=== PATIENT | female | born 1990 | race Caucasian/White ===

== ENCOUNTER → 2017-05-21 08:43 | Outpatient (CLI) | payer BC, SELFPAY ==
[2017-05-26 10:42] LABS: HPV Reflexed? NOT INDICATED
== END ==
PROVIDERS: Family Provider Pediatrics; PCP Pediatrics; Visit Provider Obstetrics & Gynecology
DX: Z12.4 Encounter for screening for malignant neoplasm of cervix (principal)
CPT/HCPCS: 88175; G0145

== ENCOUNTER → 2019-01-12 08:15 | Outpatient (CLI) | payer OTHER, SELFPAY ==
[2019-01-12 12:46] LABS: Cholesterol 201 mg/dL (200); Glucose 77 mg/dL (74-106); High Density Lipoprotein 67 mg/dL; Triglycerides 111 mg/dL; Very Low Density Lipoprotein 22 mg/dL (5-40)
== END ==
PROVIDERS: Family Provider Family Medicine; PCP Family Medicine; Referring Provider Family Medicine; Visit Provider Family Medicine
DX: Z00.00 Encounter for general adult medical examination without abnormal findings (principal)
CPT/HCPCS: 36415; 80061; 82947

== ENCOUNTER → 2019-12-28 08:10 | Outpatient (CLI) | payer OTHER, SELFPAY ==
[2019-12-28 10:12] LABS: Cholesterol 198 mg/dL (200); Glucose 79 mg/dL (74-106); High Density Lipoprotein 64 mg/dL; Thyroid Stim Hormone (TSH) 1.64 uIU/mL (0.358-3.74); Triglycerides 106 mg/dL; Very Low Density Lipoprotein 21 mg/dL (5-40)
== END ==
PROVIDERS: PCP Family Medicine; Referring Provider Family Medicine; Visit Provider Nurse Practitioner Family
DX: Z00.00 Encounter for general adult medical examination without abnormal findings (principal); R53.83 Other fatigue
CPT/HCPCS: 36415; 80061; 82947; 84443

== ENCOUNTER → 2020-06-05 12:02 | Outpatient (CLI) | payer OTHER, SELFPAY ==
--- NOTE | 2020-06-05 12:06 | RAD_ITS ---
STUDY: X-RAY - CERVICAL SPINE REASON FOR EXAM: Female, 29 years old. NECK PAIN X 10 DAYS TECHNIQUE: 5 view(s) of the cervical spine were obtained including oblique views. COMPARISON: None FINDINGS: Normal anterior atlantoaxial articulation. Normal odontoid process. There is straightening of the normal cervical lordosis. Normal vertebral bodies and endplates. Normal disc space heights. Normal visualized intervertebral neuroforamina. The soft tissue structures are unremarkable. RAD/Cerv Spine 4 or 5 Views IMPRESSION: Straightening of the normal cervical lordosis. Electronically Signed: Erick Moore MD at 17:02 EST , Service support ,
== END ==
PROVIDERS: PCP Family Medicine; Referring Provider Family Medicine; Visit Provider Family Medicine
DX: M54.2 Cervicalgia (principal)
CPT/HCPCS: 72050

== ENCOUNTER → 2020-06-06 16:43 | Outpatient (CLI) | payer OTHER, SELFPAY ==
[2020-06-06 14:18] VITALS: BMI 33.6
[2020-06-09 16:42] LABS: HPV Reflexed? NOT INDICATED
== END ==
PROVIDERS: PCP Family Medicine; Referring Provider Nurse Practitioner Women's Health; Visit Provider Nurse Practitioner Women's Health
DX: Z12.4 Encounter for screening for malignant neoplasm of cervix (principal)
CPT/HCPCS: 88175; G0145

== ENCOUNTER → 2020-06-22 07:01 | Outpatient (CLI) | payer OTHER, SELFPAY ==
[2020-06-06 14:18] VITALS: BMI 33.6
[2020-06-22 08:28] LABS: Prolactin 16.8 ng/mL; Thyroid Stim Hormone (TSH) 2.72 uIU/mL (0.358-3.74)
[2020-06-26 10:46] LABS: Testosterone Free 1.5 pg/mL (0.0-4.2)
== END ==
PROVIDERS: PCP Family Medicine; Referring Provider Nurse Practitioner Women's Health; Visit Provider Nurse Practitioner Women's Health
DX: Z13.29 Encounter for screening for other suspected endocrine disorder (principal); N94.6 Dysmenorrhea, unspecified
CPT/HCPCS: 36415; 82627; 84146; 84402; 84443; 82626

== ENCOUNTER 2021-11-28 16:00 | Outpatient (RCR) | payer SELFPAY ==
--- NOTE | 2022-03-07 07:03 | HP.PT.NRP ---
JOCELYN COELLO was seen in my office for initial evaluation on 11/21/21. The following Plan of Care was established for this patient: Initial Frequency: 1x/Week Initial Duration: 6 Weeks Manual Therapy Techniques to Include: Functional dry needling This patient was last seen in our office . Pertinent comments regarding their Physical therapy will appear below: Self pay DN-d/c At this point I will be discontinuing this patient from physical therapy. I would be happy to see this patient again in the future if found appropriate by the physician. Thank you! Jumnaa Colmenares, EMILIET
== END 2021-11-28 19:00 | disposition home or self-care (01) ==
LOC: PT 16:00
PROVIDERS: PCP Family Medicine
DX: R69 Illness, unspecified (principal)

== ENCOUNTER → 2022-08-23 | Outpatient (CLI) | payer OTHER, SELFPAY | END | disposition home or self-care (01) | PROVIDERS: PCP Family Medicine; Visit Provider Advanced Practice Midwife | DX: Z11.3 Encounter for screening for infections with a predominantly sexual mode of transmission (principal) | CPT/HCPCS: 87070; 87205 ==

== ENCOUNTER → 2022-08-30 | Outpatient (CLI) | payer OTHER, SELFPAY ==
--- NOTE | 2022-08-30 14:48 | US_ITS ---
STUDY: ULTRASOUND TRANSVAGINAL CLINICAL: Female, 31 years old. 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 FINDINGS: Normal uterine size measuring 7.4 x 4.4 x 3.8 cm in maximal craniocaudal dimension. Myometrium is slightly heterogeneous however there is no definitive evidence for focal fibroid. Normal endometrial thickness measuring 6 mm. There are no endometrial masses, and there is no fluid in the endometrial cavity. Normal uterine cervix. Normal right ovary, measuring 2.8 x 2.4 x 2.1 cm. There are multiple follicles without a dominant cyst. Normal left ovary, measuring 3.2 x 2.5 x 1.7 cm. There is a small left paraovarian cyst measuring 2.5 x 2.4 x 2.1 cm. There is no free fluid in the pelvis. US/Transvaginal Non- IMPRESSION: Small left paraovarian cyst measuring approximately 2.5 x 2.4 x 2.1 cm No other significant abnormality Electronically Signed: Gustavo Urrutia MD at 22:53 EDT ,
== END | disposition home or self-care (01) ==
LOC: OPUS 14:48
PROVIDERS: PCP Family Medicine; Referring Provider Advanced Practice Midwife; Visit Provider Advanced Practice Midwife
DX: N94.6 Dysmenorrhea, unspecified (principal); N93.0 Postcoital and contact bleeding
CPT/HCPCS: 76830

== ENCOUNTER → 2024-01-29 | Outpatient (CLI) | payer OTHER, SELFPAY ==
--- OUTSIDE RECORDS SUMMARY | 2024-01-29 08:48 | XMS RPT_ITS | CCD ---
Author Organization [facility] Care Team Providers Care Sole Tier Name Role Phone Kd Hernandez Unavailable Unavailable Kd Hernandez Unavailable Unavailable Kd Hernandez Unavailable Unavailable Unknown, Unknown Unavailable Unavailable Unavailable Unavailable Suman Herman Unavailable UNKNOWN, UNKNOWN Primary Care Unavailable Self, Referral Referring Unavailable Reinaldo, MsAndre Lung Echeverria Attending Unavailable Suman Herman Primary Care Timbo lable Virgil, Suman Carter Attending Unavai lable Virgil, Suman Carter Referring Unavaperry labbrandi Arguello, Dr. Wilma Melvin Attending Unavai lable Kaelber, Dr. Wilma Melvin Referring Unavai lable FurnSuman ambriz Primary Care Timbo Alvarez MD, Afsaneh Primary Care Provider Suman Herman MD Primary Care Provider AFSANEH ALVAREZ Primary Care Unavailable SUMAN HERMAN Primary Care Unavailable CONNIE GONZALEZ Referring Unavailable FURNESSSUMAN Primary Care Unavailable Allergies Allergy Classification Reported Allergen(s) Allergy Type Date of Onset Reaction(s) Facility (6 sources) bee pollen Allergy to substance (finding) [id number] DO Work Phone: (7 sources) nickel; Translations: [NICKEL] Drug Allergy 08-15-2012 [facility] Repository (2 sources) nickel Drug Allergy 08-15-2012 Rash [facility] Work Phone: (3 sources) Seasonal allergy; Translations: [SEASONAL ALLERGIES] Allergy to substance 01-30-2016 Intolerance [facility] Work Phone: Medications Current Medications Medication Drug Class(es) Dates Sig (Normalized) Sig (Original) predniSONE 10 mg oral tablet (1 source) Start: 05-07-2022 End: 05-19-2022 predniSONE (DELTASONE) 10 mg tablet Indications: Sciatica, right side Take 6 tabs for 3 days, then 4 tabs for 3 days, then 2 tabs for 3 days then 1 tab for 3 days with food. 39 tablet 0 05/07/2022 05/19/2022 Active Comment on above: Take 6 tabs for 3 da ys, then 4 tabs for 3 days, then 2 tabs for 3 days then 1 tab for 3 days with food. Completed/Discontinued Medications Medication Drug Class(es) Dates Sig (Normalized) Sig (Original) acyclovir 800 mg oral tablet (6 sources) Herpesvirus Nucleoside Analog DNA Polymerase Inhibitor, Herpes Simplex Virus Nucleoside Analog DNA Polymerase Inhibitor, Herpes Zoster Virus Nucleoside Analog DNA Polymerase Inhibitor Start: 12-25-2020 take 1 tablet by mouth three times daily Acyclovir 800 MG Oral Tablet take 1 tablet by mouth three times a day for 5 days Quantity: 30 Refills: 0 Ordered: 25-Dec-2020 DO Start : 25-Dec-2020 Active [id number] 200 actuat albuterol 0.09 mg/actuat metered dose inhaler (6 sources) beta2-Adrenergic Agonist Start: 09-04-2020 take 1-2 puff(s) by mouth every four to six hours as needed Albuterol Sulfate HFA 108 (90 Base) MCG/ACT Inhalation Aerosol Solution INHALE 1 - 2 PUFFS BY MOUTH EVERY 4-6 HOURS NEEDED Quantity: 8 Refills: 0 Ordered: 16-Jan-2021 DO Start : 04-Sep-2020 Active ascorbic acid 1000 mg oral tablet (6 sources) Vitamin C Start: 11-08-2021 Vitamin C 1000 MG Oral Tablet Take as directed Quantity: 0 Refills: 0 Ordered: 08-Nov-2021 DO Start : 08-Nov-2021 Active azelaic acid 0.15 mg/mg topical gel (6 sources) Start: 09-06-2021 Azelaic Acid 15 % External Gel APPLY TO THE FACE TWICE DAILY, MIX 50/50 WITH CERAVE LOTION Quantity: 50 Refills: 0 Ordered: 22-Oct-2021 DO Start : 06-Sep-2021 Active benzonatate 100 mg oral capsule (2 sources) Non-narcotic Antitussive Start: 03-13-2022 take 2 capsules by mouth every eight hours as needed benzonatate (TESSALON PERLE) 100 mg capsule Take 2 capsules by mouth three times daily as needed. 30 capsule 0 03/13/2022 Active Comment on above: Take 2 capsules by m outh three times daily as needed. biotin 10 mg oral tablet (6 sources) Start: 11-08-2021 Biotin 93592 MCG Oral Tablet TAKE DIRECTED. Quantity: 0 Refills: 0 Ordered: 08-Nov-2021 DO Start : 08-Nov-2021 Active cyclobenzaprine hydrochloride 5 mg oral tablet (7 sources) Muscle Relaxant Start: 11-02-2021 take 1 tablet by mouth twice daily as needed Cyclobenzaprine HCl - 5 MG Oral Tablet TAKE 1 TABLET 2 TIMES DAILY NEEDED. Quantity: 60 Refills: 0 Ordered: 04-Mar-2022 Reinaldo BRIDGE WORKER APPRENTICE-DAY CARE DIRECTOR, Lung Start : 02-Nov-2021 Active [id number] 0.3 ml EPINEPHrine 1 mg/ml auto-injector (2 sources) alpha-Adrenergic Agonist, beta-Adrenergic Agonist, Catecholamine Start: 11-23-2014 EPINEPHrine (EPIPEN) 0.3 mg/0.3 mL (1:1,000) atIn Use as directed per provided instructions. 2 Each 1 11/23/2014 Active Comment on above: Use as directed per provided instructions. fluticasone propionate 0.05 mg/actuat metered dose nasal spray (6 sources) Corticosteroid Start: 11-08-2021 Flonase Allergy Relief 50 MCG/ACT Nasal Suspension USE DIRECTED. Quantity: 0 Refills: 0 Ordered: 08-Nov-2021 DO Start : 08-Nov-2021 Active ibuprofen 400 mg oral tablet (7 sources) Nonsteroidal Anti-inflammatory Drug Start: 11-02-2021 take 1 tablet by mouth three times daily at mealtime IBU 400 MG Oral Tablet TAKE 1 TABLET 3 TIMES DAILY WITH MEALS. Quantity: 60 Refills: 1 Ordered: 02-Nov-2021 Reinaldo BRIDGE WORKER APPRENTICE-DAY CARE DIRECTOR, Lung Start : 02-Nov-2021 Active krill oil 500 mg oral capsule (6 sources) Start: 11-08-2021 Krill Oil 500 MG Oral Capsule Take as directed Quantity: 0 Refills: 0 Ordered: 4-Aug-2022 DO Start : 08-Nov-2021 Active loratadine 10 mg oral tablet (2 sources) Start: 11-23-2014 take 1 tablet by mouth once daily loratadine (CLARITIN) 10 mg tablet Take 1 tablet by mouth once daily. 30 tablet 11 11/23/2014 Active Comment on above: Take 1 tablet by mikey th once daily. magnesium citrate 125 mg oral capsule (6 sources) Start: 11-08-2021 Magnesium Citrate 125 MG Oral Capsule Take as directed Quantity: 0 Refills: 0 Ordered: 08-Nov-2021 DO Start : 08-Nov-2021 Active meloxicam 7.5 mg oral tablet (1 source) Nonsteroidal Anti-inflammatory Drug Start: 05-07-2022 take 1-2 tablets by mouth once daily Meloxicam 7.5 MG Oral Tablet TAKE 1 TO 2 TABLETS DAILY. Quantity: 30 Refills: 1 Ordered: 07-May-2022 Suman Herman MD Start : 07-May-2022 Active nadolol 20 mg oral tablet (7 sources) beta-Adrenergic Ramiro Start: 12-06-2021 take 1 tablet by mouth once daily Nadolol 20 MG Oral Tablet TAKE 1 TABLET DAILY. Quantity: 30 Refills: 4 Ordered: 08-Jan-2022 Reinaldo WEST-DAY CARE DIRECTOR, Lung Start : 06-Dec-2021 Active Restart medication Start: 12-06-2021 take 1 tablet by mikey th every twenty-four hours nadolol (CORGARD) 20 mg tablet Take by mouth q 24 HR. 0 12/06/2021 Active Comment on above: Take by mouth q 24 H R. rizatriptan 5 mg oral tablet (5 sources) Serotonin-1b and Serotonin-1d Receptor Agonist Start: 2 take 1 tablet by mouth every two hours as needed, then take 3 tablets by mouth every twenty-four hours as needed Rizatriptan Benzoate 5 MG Oral Tablet TAKE 1 TABLET AT ONSET OF HEADACHE. MAY REPEAT EVERY 2 HOURS NEEDED. MAXIMUM 3 TABLETS IN 24 HOURS. Quantity: 12 Refills: 5 Ordered: 02-Oct-2021 Reinaldo CARYN-DAY CARE DIRECTOR, Lung Start : 02-Oct-2021 Active ubidecarenone 50 mg oral capsule (6 sources) Start: 2 CoQ-10 50 MG Oral Capsule Take as directed Quantity: 0 Refills: 0 Ordered: 08-Nov-2021 DO Start : 08-Nov-2021 Active Problems Problem Classification Problem Date Documented Date Episodic/Chronic Attention-deficit, conduct, and disruptive behavior disorders (2 sources) Attention deficit hyperactivity disorder; Translations: [Attention-deficit hyperactivity disorder, unspecified type] 04-02-2021 Chronic Disorders of teeth and jaw (3 sources) Temporomandibular udahm-rmge-vvzvttqiluv syndrome; Translations: [Other specified temporomandibular joint disorders] Episodic Headache; including migraine (8 sources) Migraine without aura, not refractory ; Translations: [Chronic migraine without aura, without mention of intractable migraine without mention of status migrainosus] Chronic Malaise and fatigue (4 sources) Fatigue; Translations: [Other malaise and fatigue] Episodic Other upper respiratory infections (1 source) Upper respiratory infection; Translations: [Acute upper respiratory infection, unspecified] Episodic Residual codes; unclassified (1 source) Influenza-like symptoms; Translations: [Other general symptoms and signs] Episodic Spondylosis; intervertebral disc disorders; other back problems (10 sources) Neck pain; Translations: [Cervicalgia] Onset: 05-07-2022 Episodic Results Test Name Value Interpretation Reference Range Facility [facility] 05-07-2022 CNOV Office Visit (UCWSTR ) JOCELYN HERNÁNDEZ ([id number]) 1990 F Date Time Provider Department 05/07/22 2:30 PM CONNIE GONZALEZ [facility] During your visit today, we recorded the following information about you: Temperature Pulse Respiration Blood pressure 98.2 degrees 76/minute 16/minute 102/60 Weight 95.7 kg Connie Gonzalez APRN.CNP 05/07/2022 2:49 PM Signed Subjective HPI Jocelyn Flower Edgar is a 31 year old female who presents with right hip pain x 2 weeks. Pain started in right lower back and has now radiated to right hip. She rates her pain 3-4 today. She has been taking tylenol and ibuprofen and muscle relaxer at home. 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 She has had intermittent right anterior thigh numbness. She is typically pain free in the morning, then within half an hour she starts to notice pain in the right hip. Review of Systems Constitutional: Negative for fever. Respiratory: Negative. Cardiovascular: Negative. Musculoskeletal: Positive for back pain and joint pain. Negative for falls. Skin: Negative for rash. BP 102/60 Pulse 76 Temp 36.8 ?C (98.2 ?F) Resp 16 Wt 95.7 kg (211 lb) LMP 04/07/2017 SpO2 98% BMI 34.07 kg/m? PAST MEDICAL HISTORY Diagnosis Date ADHD (attention deficit hyperactivity disorder) PAST SURGICAL HISTORY Procedure Laterality Date PAST SURGICAL HISTORY OF wisdom teeth ALLERGIES Nickel and Seasonal Allergies MEDICATIONS predniSONE (DELTASONE) 10 mg tablet Take 6 tabs for 3 days, then 4 tabs for 3 days, then 2 tabs for 3 days then 1 tab for 3 days with food. nadolol (CORGARD) 20 mg tablet Take by mouth q 24 HR. (Patient not taking: Reported on 05/07/2022) benzonatate (TESSALON PERLE) 100 mg capsule Take 2 capsules by mouth three times daily as needed. (Patient not taking: Reported on 05/07/2022) loratadine (CLARITIN) 10 mg tablet Take 1 tablet by mouth once daily. (Patient not taking: Reported on 03/13/2022) EPINEPHrine (EPIPEN) 0.3 mg/0.3 mL (1:1,000) atIn Use as directed per provided instructions. (Patient not taking: Reported on 05/07/2022) FAMILY HISTORY Problem Relation Age of Onset Hypertension Paternal Grandmother Heart Paternal Grandmother Hypertension Father Social History Tobacco Use Smoking status: Never Passive exposure: Yes Smokeless tobacco: Never Tobacco comments: dad inside Substance Use Topics Alcohol use: Yes Comment: occasional, Drug use: No Objective Physical Exam Vitals and nursing note reviewed. Constitutional: Appearance: She is obese. Cardiovascular: Rate and Rhythm: Normal rate. Pulmonary: Effort: Pulmonary effort is normal. Musculoskeletal: Lumbar back: No swelling, edema, signs of trauma, tenderness or bony tenderness. Negative right straight leg raise test and negative left straight leg raise test. Skin: General: Skin is warm and dry. Findings: No bruising, erythema or rash. Neurological: General: No focal deficit present. Mental Status: She is alert and oriented to person, place, and time. Motor: No weakness. Gait: Gait is intact. Deep Tendon Reflexes: Reflex Scores: Patellar reflexes are 2+ on the right side and 2+ on the left side. ASSESSMENT/PLAN: 1. Sciatica, right side - ICD9: 724.3, ICD10: M54.31 - XR LUMBAR GENERAL 3V AP/LAT/H4-Q1-tcbdilo declined to have xray today - PREDNISONE 10 MG TABLET - ice to lower back - discussed stretches/exercises to help with pain. - Follow-up with your PCP in 3-5 days if symptoms have not improved or sooner if symptoms worsen - Discussed red flags and need for immediate medical evaluation if any occur. - Discussed supportive care treatment with fluids, rest and analgesia. - Discussed expected course of illness LUIS Lujan APRN.CNP 05/07/2022 2:44 PM Signed ASSESSMENT/PLAN: 1. Sciatica, right side - ICD9: 724.3, ICD10: M54.31 - XR LUMBAR GENERAL 3V AP/LAT/Q9-J0-htttedk declined to have xray today - PREDNISONE 10 MG TABLET - ice to lower back - discussed stretches/exercises to help with pain. - Follow-up with your PCP in 3-5 days if symptoms have not improved or sooner if symptoms worsen - Discussed red flags and need for immediate medical evaluation if any occur. - Discussed supportive care treatment with fluids, rest and analgesia. - Discussed expected course of illness Connie Gonzalez APRN.IGLESIA SCIATICA: Your exam shows you have sciatica, a condition most often seen in patients with disc disease of the lower back. Sciatica causes pain to radiate from the lower back or buttock area down the leg. It results from pressure on nerve roots coming out of the spine when a disc deteriorates and pushes to one side. Often there is a history of back problems. In most cases sciatica improves greatly with conservative tavo (more content not included)... Normal [facility] CNOVon 03-13-2022 CNOV Office Visit (UCWSTR ) JOCELYN HERNÁNDEZ ([id number]) 1990 F Date Time Provider Department 03/13/22 11:45 AM ROXANN ELDER During your visit today, we recorded the following information about you: Temperature Pulse Respiration Blood pressure 99.2 degrees 84/minute 22/minute 100/78 Weight 93.3 kg Roxann Elder APRN.DAY CARE DIRECTOR 03/13/2022 11:54 AM Signed Subjective The history is provided by the patient. No language and literature division chair was used. HPI Jocelyn Hernández is a 31 year old female who presents today for CC of cough congestion and fever, chills and body aches for four days. She has used dayquil/nyquil with short term relief. She denies any nausea or vomiting. similar symptoms last week, was never tested. BP 100/78 Pulse 84 Temp 37.3 ?C (99.2 ?F) Resp 22 Wt 93.3 kg (205 lb 9.6 oz) LMP 04/07/2017 SpO2 98% BMI 33.20 kg/m? Social History Tobacco Use Smoking status: Never Passive exposure: Yes Smokeless tobacco: Never Tobacco comments: dad inside Substance Use Topics Alcohol use: Yes Comment: occasional, Drug use: No PAST MEDICAL HISTORY Diagnosis Date ADHD (attention deficit hyperactivity disorder) I have confirmed and edited as necessary, the [facility] Review of Systems Constitutional: Positive for chills and malaise/fatigue. Negative for fever. HENT: Positive for congestion, sinus pain and sore throat. Negative for ear pain. Respiratory: Positive for cough. Negative for sputum production, shortness of breath and wheezing. Cardiovascular: Negative for chest pain. Gastrointestinal: Positive for diarrhea. Negative for abdominal pain, nausea and vomiting. Musculoskeletal: Positive for myalgias. Neurological: Positive for headaches. Objective Physical Exam Vitals and nursing note reviewed. HENT: Head: Normocephalic and atraumatic. Right Ear: Tympanic membrane, ear canal and external ear normal. Left Ear: Tympanic membrane, ear canal and external ear normal. Nose: Mucosal edema, congestion and rhinorrhea present. Right Sinus: No maxillary sinus tenderness or frontal sinus tenderness. Left Sinus: No maxillary sinus tenderness or frontal sinus tenderness. Mouth/Throat: Pharynx: Uvula midline. Posterior oropharyngeal erythema (mld) present. No oropharyngeal exudate. Cardiovascular: Rate and Rhythm: Normal rate and regular rhythm. Heart sounds: Normal heart sounds. Pulmonary: Effort: Pulmonary effort is normal. Breath sounds: Normal breath sounds. Lymphadenopathy: Head: Right side of head: No submental, submandibular or tonsillar adenopathy. Left side of head: No submental, submandibular or tonsillar adenopathy. Cervical: No cervical adenopathy. Skin: General: Skin is warm and dry. Neurological: Mental Status: She is alert. Psychiatric: Mood and Affect: Affect normal. ASSESSMENT/PLAN: 1. Flu-like symptoms - ICD9: 780.99, ICD10: R68.89 (primary diagnosis) Home isolation Testing ordered Comfort measures discussed - see patient instructions. When to seek higher level of care Notified in 12-24 hours with results, available on [facility] - COVID WITH FLUA+B, ROUTINE 2. URI with cough and congestion - ICD9: 465.9, ICD10: J06.9 - Discussed viral etiology and rationale for treatment. - Symptomatic treatment with prn analgesia - Supportive care with fluids and rest - COVID WITH FLUA+B, ROUTINE Diagnosis and treatment plan were discussed and questions were answered to the patient's satisfaction. Pt acknowledged understanding of concepts and follow up plan. Specific signs and symptoms that would indicate the need for higher level of care were discussed in detail warranting prompt ER evaluation. Roxann Elder APRN.IGLESIA Elder APRN.IGLESIA 03/13/2022 11:44 AM Signed covid and influenza test ordered You will be notified in 12-24 hours, results available on [facility] Home isolation until results are back Rest, increase water intake Motrin or Tylenol as needed for fever or pain. Salt water gargles, chloraseptic spray or lozenges as needed for sore throat. Warm beverages, honey. Nasal saline spray as needed Cool mist humidifier at night Tylenol (generic acetaminophen) 500 mg-2 tabs every 8 hrs. as needed for fever and aches Ibuprofen 600 mg (3-200mg tablets) every 6 hours Continue dayquil, nyquil Tesslon perls as needed * Seek medical care immediately, call 911, go to ER if you have chest pain, difficulty breathing, shortness of breath, inability to swallow. Allergies As of Date: 03/13/2022 Noted Allergy Reaction NICKEL 08/15/2012 2 - Rash SEASONAL ALLERGIES 01/30/2016 5 - Intolerance Date Reviewed: 03/13/2022 Reviewed by: Aundrea Yates MA - Fully Assessed Reason for Visit: Cough [28] Cmt: Tired, sick x 2 days Primary Visit Diagnosis:Flu-like symptoms [R68.89] Other Visit Diagnosis:URI with cough and congestion [J06.9] (more content not included)... Normal [facility] Office Visit ([facility])on 12-19-2021 Follow-up visit Diagnoses/Problems Assessed Cervicalgia (723.1) (M54.2) Chronic migraine without aura without status migrainosus, not intractable (346.70) (G43.709) Family history of hypothyroidism (V18.19) (Z83.49) : Mother, Aunt Fatigue (780.79) (R53.83) Orders Cervicalgia, Chronic migraine without aura without status migrainosus, not intractable Chiropractic Medicine Referral Evaluation and Treatment Evaluate AND Treat Status: Hold For - Scheduling Requested for: 19Dec2021 Chronic migraine without aura without status migrainosus, not intractable Vitamin D 25-Hydroxy; Status:Active; Requested for:[id number]; Fatigue Complete Blood Count + Differential; Status:Active; Requested for:[id number]; TSH WITH REFLEX TO FREE T4 IF ABNORMAL; Status:Active; Requested for:[id number]; Vitamin B12, Serum; Status:Active; Requested for:[id number]; Patient Discussion/Summary 1. try to wean coffee to one cup per day. 2. suggest start pure encapsulation multi one. 3. try no dairy for six weeks to see if it improves congestion and headaches. 4. continue resident care aid, stretching. 5. obtain vitamin d and tsh levels, cbc, vitamin B12 6. dental exam for grinding. 7. try acupressure mat. 8. try more vigorous exercise. follow up in 2 months with me. Wilma Arguello MD, PhD, FAAP, FACP Provider Impressions recent uptick in headaches. she does grind her teeth and have chronic neck pain so would like for her to see chiropractic to see if there are causes even more distant than neck such as pelvis/diaphragm that might be triggering her neck pain and grinding. acuppressure mat mother has hypothyroidism and her tsh has risen in last two years so suggest repeat lab to make sure this is not causing the worsening headaches. optimize vitamin d and make sure not anemic or b12 deficient. do not recommend massive doses of biotin. chronic nasal congestion: trial off dairy to see if this improves. I spent 55 minutes with this patient. Greater than 50% of this time was spent in counseling and /or coordination of care. Chief Complaint An interactive audio and video telecommunication system which permits real time communications between the patient (at the originating site) and provider (at the distant site) was utilized to provide this telehealth service. Verbal consent was requested and obtained from JOCELYN HERNÁNDEZ on this date, 12/19/2021 08:15 AM , for a telehealth visit. headaches neck pain History of Present IllnessJOCELYN HERNÁNDEZ presents to [facility] today for new patient evaluation and consultation for integrative treatment options for chronic headache and neck pain Patient was referred by:Dr. Christopher Najera chronic headaches: recently saw Dr. Najera and was put on naldolol because she had a recently an uptick in headaches. some form of a headache daily prior to starting naldolol. also suffers from some neck pain. she feels that sometimes her neck pain will cause her headache. she can sometimes get the headache to abort with neck stretches. massage has helped the headaches when she has a headache but it is short term relief. tried dry needling and acupuncture. tried some chiropractor appointments. no new stressors. headaches seemed to have begun with an eye strain that caused pain. went to eye doctor and found that prescription needed adjustment. got lasik which helped her eye strain. But now with the naldolol that she started two weeks ago and she had one headache with a sinus infection. has had tension come on a few times but has not turned into a headache because she tries to correct her posture. had a thyroid test and it came back fine. denies fatigue. tsh 2.72 06/22/20, 1.64 on 12/28/19 local physician office. 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 non smoker. Sleep: falls asleep well but does take melatonin 5mg at bedtime. wakes up and feels very stiff in her neck and shoulders. wakes with soreness. average number of hours: snoring:denies except sometimes nightmares: restless leg: difficulty falling asleep:no trouble difficulty staying asleep:no trouble Activity/Movement:tri es to do something each day- walk or weight training. not really any intense cardio besides walking. Frequency: [] times per week for [] minutes 24 hour diet recall reviewed and scanned into [employer]. BREAKFAST: over night oats or protein shake- almond milk optimum nutrition and powder collagen LUNCH:leftover brocoli and scrambled eggs and cheese DINNER:turkey kielbasa baked potatoes SNACKS:peanut butter and jelly on bread Water/day: water Caffeine/Day: 2 cups of coffee per day alcohol use: 1x per week will have 2-3beers per week. Stress management:likes to read for pleasure when she does not have eye strain. likes to get outside. sees friends. does some yoga. does not use any apps for meditation Support System:Spotted (more content not included)... Normal [employer] GLUCOSE,FASTINGon 12-07-2021 Glucose [Mass/Vol] 81 mg/dL Normal 74 - 99 [facility] Comment on above: Result Comment: INCR EASED RISK FOR DIABETES 100-125 mg/dL DIAGNOSTIC OF DIABETES >=126 mg/dL Diagnosis of diabetes mellitus requires confirmation of an abnormal result by repeat testing. [place] [employer], Diabetes Care; 33(Supp 1), Apr 2009. Performed By: #### G MAIKOL #### [address] [place] [address] Glucose, Fastingon Glucose post fast [Mass/Vol] 81 mg/dL 74 - 99 [facility] Work Phone: Comment on above: INCREASED RISK FOR D IABETES 100-125 mg/dL DIAGNOSTIC OF DIABETES >=126 mg/dL Diagnosis of diabetes mellitus requires confirmation of an abnormal result by repeat testing. [place] [employer], Diabetes Care; 33(Supp 1), Apr 2009. LIPID PANEL (CORONARY RISK 2 )on 12-07-2021 Cholesterol [Mass/Vol] 204 mg/dL High 0 - 199 [facility] [facility] Comment on above: Result Comment: . AGE DESIRABLE BORDERLINE HIGH HIGH 0-19 Y 0 - 169 170 - 199 >/= 200 20-24 Y 0 - 189 190 - 224 >/= 225 >24 Y 0 - 199 200 - 239 >/= 240 All ranges are based on fasting samples. Specific therapeutic targets will vary based on patient-specific cardiac risk. . Pediatric guidelines reference:Pediatrics 2011, 128(S5). Adult guidelines reference: NCEP ATPIII Guidelines, ADALBERTO 2001, 258:6686-97 . Venipuncture immediately after or during the administration of Metamizole may lead to falsely low results. Testing should be performed immediately prior to Metamizole dosing. Performed By: #### L IPID #### [address] [address] Cholesterol in HDL [Mass/Vol] 68.0 mg/dL Normal [facility] Comment on above: Result Comment: . AGE VERY LOW LOW NORMAL HIGH 0-19 Y < 35 < 40 40-45 ---- 20-24 Y ---- < 40 >45 ---- >24 Y ---- < 40 40-60 >60 . Performed By: #### L IPID #### [address] [address] Cholesterol in LDL [Mass/Vol] 117 mg/dL High 0 - 99 [facility] Comment on above: Result Comment: . NEAR BORD AGE DESIRABLE OPTIMAL HIGH HIGH VERY HIGH 0-19 Y 0 - 109 --- 110-129 >/= 130 ---- 20-24 Y 0 - 119 --- 120-159 >/= 160 ---- >24 Y 0 - 99 100-129 130-159 160-189 >/=190 . Performed By: #### L IPID #### [address] [address] Cholesterol in VLDL [Mass/Vol] 19 mg/dL Normal 0 - 40 [facility] Comment on above: Performed By: #### L IPID #### [address] [address] Cholesterol.total/C holesterol in HDL [Mass ratio] 3.0 {ratio} Normal [facility] Comment on above: Result Comment: REF VALUES DESIRABLE < 3.4 HIGH RISK > 5.0 Performed By: #### L IPID #### [address] [address] Triglyceride [Mass/Vol] 93 mg/dL Normal 0 - 149 [facility] Comment on above: Result Comment: . AGE DESIRABLE BORDERLINE HIGH HIGH VERY HIGH 0 D-90 D 19 - 174 ---- ---- ---- 91 D- 9 Y 0 - 74 75 - 99 >/= 100 ---- 10-19 Y 0 - 89 90 - 129 >/= 130 ---- 20-24 Y 0 - 114 115 - 149 >/= 150 ---- >24 Y 0 - 149 150 - 199 200- 499 >/= 500 . Venipuncture immediately after or during the administration of Metamizole may lead to falsely low results. Testing should be performed immediately prior to Metamizole dosing. Performed By: #### L IPID #### [address] [address] Lipid Panelon 12-07-2021 Cholesterol [Mass/Vol] 204 mg/dL above high threshold 0 - 199 -[employer] [facility] Work Phone: Comment on above: . AGE DESIRABLE BORD ARETHA HIGH HIGH 0-19 Y 0 - 169 170 - 199 >/= 200 20-24 Y 0 - 189 190 - 224 >/= 225 >24 Y 0 - 199 200 - 239 >/= 240 All ranges are based on fasting samples. Specific therapeutic targets will vary based on patient-specific cardiac risk.. Pediatric guidelines reference:Pediatrics 2011, 128(S5). Adult guidelines reference: NCEP ATPIII Guidelines, ADALBERTO 2001, 258:2486-97. Venipuncture immediately after or during the administration of Metamizole may lead to falsely low results. Testing should be performed immediately prior to Metamizole dosing. Cholesterol in HDL [Mass/Vol] 68.0 mg/dL EDAN [facility] Work Phone: Comment on above: . AGE VERY LOW LOW N ORMAL HIGH 0-19 Y < 35 < 40 40-45 ---- 20- 24 Y ---- < 40 >45 ---- >24 Y ---- < 40 40-60 >60. Cholesterol in LDL [Mass/Vol] 117 mg/dL above high threshold 0 - 99 [employer] [facility] Work Phone: Comment on above: . NEAR BORD AGE EDEL RABLE OPTIMAL HIGH HIGH VERY HIGH 0-19 Y 0 - 109 --- 110-129 >/= 130 ---- 20-24 Y 0 - 119 --- 120-159 >/= 160 ---- >24 Y 0 - 99 100-129 130-159 160-189 >/=190. Cholesterol.total/C holesterol in HDL [Mass ratio] 3.0 {ratio} [employer] [facility] Work Phone: Comment on above: REF VALUESDESIRABLE < 3.4HIGH RISK > 5.0 Triglyceride [Mass/Vol] 93 mg/dL 0 - 149 [employer] [facility] Work Phone: Comment on above: . AGE DESIRABLE BORD ARETHA HIGH HIGH VERY HIGH 0 D-90 D 19 - 174 ---- ---- ----91 D- 9 Y 0 - 74 75 - 99 >/= 100 ---- 10-19 Y 0 - 89 90 - 129 >/= 130 ---- 20-24 Y 0 - 114 115 - 149 >/= 150 ---- >24 Y 0 - 149 150 - 199 200- 499 >/= 500. Venipuncture immediately after or during the administration of Metamizole may lead to falsely low results. Testing should be performed immediately prior to Metamizole dosing. Lipid Panel 19 mg/dL 0 - 40 EDAN [facility] Work Phone: Office Visit (Primary Care T xt/Forms)on 12-04-2021 Follow-up visit Diagnoses/Problems Health Maintenance/Risks Encounter for preventive health examination (V70.0) (Z00.00) Orders Health Maintenance Glucose, Fasting; Status:Active; Requested for:[id number]; Lipid Panel; Status:Active; Requested for:[id number]; SocHx: Non-smoker Tobacco Use Screening; Status:Complete; Done: 04Dec2021 Chief Complaint WELLNESS CPX History of Present Illness wellness SU are better now. not using any meds. very little HFA use. very little valtrex use. need slabs for work PE could try SSRI for PMDD Review of Systems Constitutional: not feeling tired. Eyes: no eyesight problems and no blurry vision. ENT: normal hearing. Cardiovascular: no chest pain, no palpitations, no shortness of breath and no chest pressure. Respiratory: no cough. Gastrointestinal: no constipation and no diarrhea. Genitourinary: normal urine frequency, no dysuria. Integumentary: no rashes. Neurological: headache, but no dizziness. Psychiatric: no mood changes and no sleep disturbances. Endocrine: no weight change, no temperature intolerance, no hair thinning/loss and no increase in thirst. Active Problems Problems Cervicalgia (723.1) (M54.2) Chronic migraine without aura without status migrainosus, not intractable (346.70) (G43.709) Surgical History Problems History of Corneal lasik History of [place] tooth extraction Family History Mother Family history of hypothyroidism (V18.19) (Z83.49) Father Family history of hypertension (V17.49) (Z82.49) Aunt Family history of hypothyroidism (V18.19) (Z83.49) Family history of malignant neoplasm of breast (V16.3) (Z80.3) Social History Problems Coffee Consumes alcohol occasionally (V49.89) (Z78.9) No advance directives (V49.89) (Z78.9) No illicit drug use Non-smoker (V49.89) (Z78.9) Current Meds Medication NameInstruction Acyclovir 800 MG Oral Tablettake 1 tablet by mouth three times a day for 5 days Albuterol Sulfate HFA 108 (90 Base) MCG/ACT Inhalation Aerosol SolutionINHALE 1 - 2 PUFFS BY MOUTH EVERY 4-6 HOURS NEEDED Azelaic Acid 15 % External GelAPPLY TO THE FACE TWICE DAILY, MIX 50/50 WITH CERAVE LOTION Biotin 20302 MCG Oral TabletTAKE DIRECTED. CoQ-10 50 MG Oral CapsuleTake as directed Cyclobenzaprine HCl - 5 MG Oral TabletTAKE 1 TABLET 2 TIMES DAILY NEEDED. Flonase Allergy Relief 50 MCG/ACT Nasal SuspensionUSE DIRECTED. IBU 400 MG Oral TabletTAKE 1 TABLET 3 TIMES DAILY WITH MEALS. Krill Oil 500 MG Oral CapsuleTake as directed Magnesium Citrate 125 MG Oral CapsuleTake as directed Rizatriptan Benzoate 5 MG Oral TabletTAKE 1 TABLET AT ONSET OF HEADACHE. MAY REPEAT EVERY 2 HOURS NEEDED. MAXIMUM 3 TABLETS IN 24 HOURS. Vitamin C 1000 MG Oral TabletTake as directed Allergies Medication No Known Drug Allergies NonMedication Nickel Pollen Vitals Vital Signs Recorded: [id number] 03:30PM Heart Rate: 83 Systolic: 112 Diastolic: 66 Height: 5 ft 6 in Weight: 203 lb 7 oz BMI Calculated: 32.84 kg/m2 BSA Calculated: 2.01 Tobacco Use: b) No PHQ-2 #1. Over the last 2 weeks have you felt down, depressed or hopeless? (If yes, answer PHQ-9 below): No PHQ-2 #2. Over the last 2 weeks have you felt little interest or pleasure in doing things? (If yes, answer PHQ-9 below): No Falls Screening (Age 18+): a) No falls within the last year O2 Saturation: 98 Physical Exam General: Alert and oriented, No acute distress. Ambulation status: With steady gait. Appearance: Well nourished, Calm. Behavior: Cooperative. Respiratory: Lungs are clear to auscultation, Respirations are non-labored, Breath sounds are equal, Symmetrical chest wall expansion. Cardiovascular: Normal rate, Regular rhythm, No murmur, No gallop. Integumentary: Warm, Dry, [place], Intact. Psychiatric: Cooperative, Appropriate mood AND affect, Normal judgment. Signatures Electronically signed by : Suman Herman MD; Dec 04 2021 3:56PM EST (Author) Normal [employer] Tobacco Screening.on 022 Adult depression screening assessment No KO-Duyohwffv-J [employer] 204 DO Work Phone: Fall risk assessment a) No falls within the last year [facility] Work Phone: Tobacco use status [facility] b) No MZ-Cvelrmpcl-U andie 204 DO Work Phone: Office Visit (Neuro-General) on 10-02-2021 Follow-up visit Provider Impressions Signs and symptoms consistent with chronic migraine without aura. Given the light sensitivity, worsening on 1 side versus the other, strong likelihood that her tension headaches are in fact a migraine variant. Rizatriptan for rescue, patient would prefer to utilize nonpharmacologic treatment alternatives. 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 Interested in acupuncture. Consider aimovig for prevention if MOH is not improved. Botox may be an option. Patient Discussion/Summary Advised ergonomic evaluation at workstation. Avoid using Tylenol or Ibuprofen for more than 3 days per week. Can stop the medication all together to Evaluation for possible medication overuse headache. [facility] referral for non-pharmacologic treatment alternatives for migraine. Rizatriptan for rescue. Please call our office at [phone] to leave a message with my secretary administrative assistant if you have any questions or concerns. Please contact me on the [employer] application if you cannot reach me through the phone. Return to clinic in 3 months or in person or earlier as needed. Diagnoses/Problems Assessed Chronic migraine without aura without status migrainosus, not intractable (346.70) (G43.709) Cervicalgia (723.1) (M54.2) Orders Cervicalgia [facility] Referral Evaluation and Treatment Evaluate AND Treat headaches and neck/upper back tightness. Status: Hold For - Scheduling Requested for: 02Oct2021 Chronic migraine without aura without status migrainosus, not intractable Start: Rizatriptan Benzoate 5 MG Oral Tablet; TAKE 1 TABLET AT ONSET OF HEADACHE. MAY REPEAT EVERY 2 HOURS NEEDED. MAXIMUM 3 TABLETS IN 24 HOURS Chief Complaint An interactive audio and video telecommunication system which permits real time communications between the patient (at the originating site) and provider (at the distant site) was utilized to provide this telehealth service.1 . Verbal consent was requested and obtained from JOCELYN FRAGOSO on this date, 10/02/2021 08:00 AM , for a telehealth visit.1 . Headaches 1 Amended By: Christopher Najera; Oct 02 2021 9:25 AM ESTHistory of Present Illness Patient here today to discuss headache. Reports headaches x 6 months with eye strain, took a break from contacts but it didn?t get better. Previously would only get headaches once or twice a week, with gaps in between. Was getting forehead tension and pain, then whole head gets worse, L>R. Lasik was helpful. Better over time but very slowly. Saw her PCP who prescribed amitriptyline. Has been more light sensitive after Lasik, but felt better to recover in a dark quiet room even before the Lasik. Headaches associated with photophobia. Denies nausea, dizziness, phonophobia. Triggers include wearing hair up (particularly in a clip), stress, phone/computer time, neck tightness (computer time, increased work), sound, sleep changes (late nights make it uncomfortable), slouching and posture triggers. Denies triggers to light, smells, alcohol (actually makes headache feel a little better), weather (will trigger sinuses), certain foods, menses. Reports 30 headache days per month. Headaches generally occur later in the day, depending on if she is wearing hair up. Worst headache pain in past month was 5-6/10, usually 2-3/10. Sleep has been good. Denies depression/anxiety. Daily coffee use, does help with headaches a little, will get withdrawal headaches. 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 Has tried the following medications and treatments: Amitriptyline 50mg helped some for pain severity, still daily, but did not resolve completely. Was more flared up before. Made very sedated. Doubling to 100mg was more helpful but made her a zombie. Past Meds: Tylenol not helpful when headaches were worse, with amitriptyline helped a little. Using every other day. Ibuprofen not helpful when headaches were worse, with amitriptyline helped a little. Magnesium 400mg x 4-6 weeks, did not notice a significant. Massage is helpful. This note was partially generated using the [employer] voice recognition system. There may be typographical errors, spelling, or punctuation errors that were not corrected prior to committing the note to the medical record. Review of Systems Headaches go away when laying down, but can start as work starts. Visual halos with lasik. Jaw popping with TMJ, although has not been an issue lately. Denies new progressive headache, seizures, altered mental status. Denies worsening from position changes, cough/sneeze/bearing down, strenuous exercise (feels better), sexual intercourse. Denies fever, weight loss, body aches, thunderclap headache. Denies diplopia, vision loss, red eyes. Denies hearing loss, tinnitus, rhinorrhea. Denies cough, shortness of breath. Denies chest pain, palpitations, syncope. Denies diarrhea, constipation. Denies hematuria, dysuria. Denies rash. Allergies (more content not included)... Normal [employer] NOVEL CORONAVIRUS NASOPHARYN GEAL - [facility] SPECIMEN ONLYon 11-17-2019 SARS-COV-2 NOT DETECTED Normal NOT DETECTED [facility] Comment on above: Order Comment: Submi tter Name: TAN MCMAHON Agent Suspected: SARS-COV-2 This test was performed using real time PCR and has been approved for the qualitative detection of SARS-CoV-2 nucleic acid. The test has been authorized by the FDA under an emergency use authorization for use by authorized laboratories. Result Comment: Nega tive results do not preclude SARS-CoV-2 infection and should not be used as the sole basis for treatment or other patient management decisions. Optimum specimen types and timing for peak viral levels during infections caused by SARS-CoV-2 has not been determined. The possibility of a false negative result should especially be considered if the patient's recent exposures or clinical presentation suggest that SARS-CoV-2 infection is probable, and diagnostic tests for other causes of illness (e.g., other respiratory illness) are negative. Collection of a new specimen and re-testing may be necessary if the patient is critically ill or clinically deteriorating. Performed By: #### L [id number] #### [facility] (DEFAULT) [address] [place] [address] Vital Signs Date Time Vital Sign Value Performing Clinician Facility 05-07-2022 14:22-0500 Body temperature 98.2 [degF] Connie Gonzalez APRN.CNP Work Phone: [facility] 05-07-2022 14:22-0500 Body weight 95.71 kg Connie Gonzalez APRN.CNP Work Phone: [facility] 01-31-2023 14:22-0500 Diastolic blood pressure 60 mm[Hg] Connie Praisler-Wood BRIDGE WORKER APPRENTICE.DAY CARE DIRECTOR Work Phone: [facility] 05-07-2022 14:22-0500 Heart rate 76 /min Connie Praisler-Wood BRIDGE WORKER APPRENTICE.DAY CARE DIRECTOR Work Phone: [facility] 05-07-2022 14:22-0500 Respiratory rate 16 /min Connie Praisler-Wood BRIDGE WORKER APPRENTICE.DAY CARE DIRECTOR Work Phone: [facility] 05-07-2022 14:22-0500 SaO2% (BldA) [Mass fraction] 98 % Connie Praisler-Wood BRIDGE WORKER APPRENTICE.DAY CARE DIRECTOR Work Phone: [facility] 05-07-2022 14:22-0500 Systolic blood pressure 102 mm[Hg] Connie Praisler-Wood BRIDGE WORKER APPRENTICE.DAY CARE DIRECTOR Work Phone: [facility] 03-13-2022 11:30-0500 Body temperature 99.19 [degF] Roxann 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DAY CARE DIRECTOR Work Phone: [facility] 03-13-2022 11:30-0500 Body weight 93.26 kg Roxann 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DAY CARE DIRECTOR Work Phone: [facility] 03-13-2022 11:30-0500 Diastolic blood pressure 78 mm[Hg] Roxann 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DAY CARE DIRECTOR Work Phone: [facility] 03-13-2022 11:30-0500 Heart rate 84 /min Roxann 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DAY CARE DIRECTOR Work Phone: [facility] 03-13-2022 11:30-0500 Respiratory rate 22 /min Roxann 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DAY CARE DIRECTOR Work Phone: [facility] 03-13-2022 11:30-0500 SaO2% (BldA) [Mass fraction] 98 % Roxann 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DAY CARE DIRECTOR Work Phone: [facility] 03-13-2022 11:30-0500 Systolic blood pressure 100 mm[Hg] Roxann 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DAY CARE DIRECTOR Work Phone: [facility] 01-02-2022 15:35-0400 Body height 167.64 cm Suman T Furness Work Phone: LJ-Cfgoaejge-Gpczl a 170 DO Work Phone: 01-02-2022 15:35-0400 Body mass index (BMI) [Ratio] 32.93 kg/m2 Suman T Furness Work Phone: NF-Ufezedpdq-Wzjec a 170 DO Work Phone: 01-02-2022 15:35-0400 Body surface area Derived from formula 2.02 m2 Suman T Furness Work Phone: GM-Ffpxaumvl-Krsxb a 170 DO Work Phone: 01-02-2022 15:35-0400 Body temperature 98.3 [degF] Suman T Furness Work Phone: AH-Knltziyuh-Qbies a 170 DO Work Phone: 01-02-2022 15:35-0400 Body weight 92.53 kg Suman T Furness Work Phone: PT-Zhkuvllac-Gbrny a 170 DO Work Phone: 01-02-2022 15:35-0400 Diastolic blood pressure 68 mm[Hg] Suman T Furness Work Phone: MB-Fgdgtbzbc-Yxboz a 170 DO Work Phone: 01-02-2022 15:35-0400 Heart rate 67 /min Suman T Furness Work Phone: DZ-Cdaxrlrov-Tbowj a 170 DO Work Phone: 01-02-2022 15:35-0400 Systolic blood pressure 103 mm[Hg] Suman T Furness Work Phone: RW-Zejkqjopw-Csxdp a 170 DO Work Phone: 12-04-2021 15:30-0400 Body height 167.64 cm Smuan T Furness Work Phone: JY-Nxuuysqcf-Rkypx ban 204 DO Work Phone: 12-04-2021 15:30-0400 Body mass index (BMI) [Ratio] 32.84 kg/m2 Suman Mckinney Furness Work Phone: IN-Cinohknho-Knrdd ban 204 DO Work Phone: 12-04-2021 15:30-0400 Body surface area Derived from formula 2.01 m2 Suman Mckinney Furness Work Phone: QU-Pvjhqtowz-Luveh ban 204 DO Work Phone: 12-04-2021 15:30-0400 Body weight 92.28 kg Suman Mckinney Furness Work Phone: ND-Pfvlhovbq-Ltbhh ban 204 DO Work Phone: 12-04-2021 15:30-0400 Diastolic blood pressure 66 mm[Hg] Suman Mckinney Furness Work Phone: GD-Iqgnsasyn-Qjalf ban 204 DO Work Phone: 12-04-2021 15:30-0400 Heart rate 83 /min Suman Gonzalezess Work Phone: QU-Iwsxzivuc-Bfnhu ban 204 DO Work Phone: 12-04-2021 15:30-0400 SaO2% (BldA) [Mass fraction] 98 % Suman Mckinney Furness Work Phone: TN-Xbbodvygs-Nrrfa ban 204 DO Work Phone: 12-04-2021 15:30-0400 Systolic blood pressure 112 mm[Hg] Suman Gonzalezess Work Phone: WH-Toegbyskv-Mvcmj ban 204 DO Work Phone: Encounters Encounter Date Encounter Type Care Provider Facility Start: 05-07-2022 AUDIT Suman ambriz Work Phone: [facility] Work Phone: Start: 05-07-2022 End: 05-07-2022 ambulatory SUMANLARON HERMAN Facility:[facility] Start: 05-07-2022 End: 05-07-2022 Patient encounter procedure Connie HullTerence BRIDGE WORKER APPRENTICE.DAY CARE DIRECTOR Work Phone: [facility] Comment on above: Sciatica, right side (Primary Dx) Start: 03-13-2022 End: 03-13-2022 ambulatory AFSANEH ALVAREZ Facility:[facility] Start: 03-13-2022 End: 03-13-2022 Patient encounter procedure Roxann Elder BRIDGE WORKER APPRENTICE.DAY CARE DIRECTOR Work Phone: [facility] Comment on above: Flu-like symptoms (P rimary Dx); URI with cough and congestion Start: 03-04-2022 AUDIT Suman ambriz Work Phone: [facility] Work Phone: Start: 01-02-2022 Office outpatient vi sit 15 minutes Suman Herman Work Phone: CV-Cqdlbujlo-Fxcqbr 170 DO Work Phone: Start: 12-19-2021 Office outpatient ne w 60 minutes Suman Herman Work Phone: [facility] DO Work Phone: Start: 12-19-[address] Wilma Arguello Facility:12 Start: 12-11-2021 Chart Update Suman ambriz Work Phone: [facility] Work Phone: Start: 12-06-2021 AUDIT Suman Gonzalez ess Work Phone: DM-Himxfarzr-Blyztebp 204 DO Work Phone: Start: 12-04-2021 ambulatory Suman Gonzalezess Facility:[id number] Start: 11-02-2021 AUDIT Unknown Unknown [facility] Work Phone: Start: 10-02-2021 Phys/qhp telephone evaluation 21-30 min Unknown Unknown FK-Umqfgvevc-Cxoftivc 204 DO Work Phone: Start: 10-02-2021 ambulatory UNKNOWN UNKNOWN Facilit [id number] Start: 04-29-2017 End: 04-30-2017 Ambulatory Kd Hernandez Facility:[facility] Internal Medicine Procedures Date Procedure Procedure Detail Performing Clinician Extraction of wisdom tooth P kevin Herman Work Phone: Laser assisted in si tu keratomileusis Suman Herman Work Phone: Plan of Treatment Date Care Activity Detail Author Start: 04-07-2022 DEPRESSION ASSESSMENT DEPRESSION ASS ESSMENT [facility] Start: 03-13-2022 End: 03-27-2022 Influenza virus A and B RNA and SARS-CoV-2 (COVID-19) N gene panel - Respiratory specimen by MCKAYLA with probe detection COVID WITH FLUA+B, ROUTINE Microbiology Routine Flu-like symptoms URI with cough and congestion Expected: 03/13/2022, Expires: 03/27/[address] [facility] Work Phone: Comment on above: Expected: 03/13/2022 , Expires: 03/27/2022 Start: 01-02-2022 FUVGENERAL, Provider : Christopher Najera, Status: Pen, Time: 3:30 PM FUVGENESANDRA, Provider: Christopher Najera, Status: Pen, Time: 3:30 PM [facility] Work Phone: Start: 12-19-2021 VIRISIDRO, Provider : Wilma Arguello, Status: Pen, Time: 8:15 AM VIRNPVSARIKA, Provider: Wilma Arguello, Status: Pen, Time: 8:15 AM JE-Gtwsullgm-Gyldrmqh 204 DO Work Phone: Start: 12-06-2021 Influenza vaccination INFLUENZA (#1) [facility] Start: 12-04-2021 NPV, Provider: Suman Herman, Status: Pen, Time: 3:20 PM NPV, Provider: Suman Herman, Status: Pen, Time: 3:20 PM AF-Gmlsziqbn-Giovmumf 204 DO Work Phone: Start: 11-12-2021 HALLE, Provider : Wilma Arguello, Status: Ole, Time: 11:15 AM HALLE, Provider: Wilma Arguello, Status: Ole, Time: 11:[address] Work Phone: Start: 04-07-2021 DEPRESSION ASSESSMENT DEPRESSION ASS ESSMENT [facility] Start: 2020 HPV TESTING HPV TESTING [facility] Start: 06-27-2020 COVID-19 VACCINE (3 - Booster for Pfizer series) COVID-19 VACCINE (3 - Booster for Pfizer series) [facility] Start: 10-06-2019 PAP TESTING PAP TESTING [facility] Start: 10-14-2017 Urine microalbumin profile DTAP,TDAP,TD (7 - Td or Tdap) [facility] Start: 2008 HEPATITIS C SCREENING HEPATITIS C SC REENING [facility] Start: 2008 HIV SCREENING HIV SCREENING [facility] End: 06-06-2023 Radex spine lumbosacral 2/3 views XR LUMBAR GENERAL 3V AP/LAT/L5-S1 Radiology STAT Sciatica, right side 1 Occurrences starting 05/07/2022 until 06/06/[address] [facility] Work Phone: Comment on above: 1 Occurrences starti ng 05/07/2022 until 06/06/2023 Immunizations Immunization Date Immunization Notes Care Provider Annalee gregg 01-30-2016 influenza, injectabl e, quadrivalent, contains preservative Roxann 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DAY CARE DIRECTOR Work Phone: [facility] Work Phone: 01-04-2015 influenza, injectabl e, quadrivalent, contains preservative Roxann 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DAY CARE DIRECTOR Work Phone: [facility] 10-15-2007 Meningococcal, MCV4, unspecified conjugate formulation(groups A, C, Y and W-135) Roxann 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DAY CARE DIRECTOR Work Phone: [facility] Work Phone: 10-15-2007 tetanus toxoid, redu jada diphtheria toxoid, and acellular pertussis vaccine, adsorbed Roxann 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DAY CARE DIRECTOR Work Phone: [facility] Work Phone: 10-18-2002 measles, mumps, rubella, and varicella virus vaccine Roxann 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DAY CARE DIRECTOR Work Phone: [facility] Work Phone: 12-08-1998 hepatitis B vaccine, pediatric or pediatric/adolescent dosage Roxann 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[employer] Work Phone: [facility] Work Phone: 02-07-1998 hepatitis B vaccine, pediatric or pediatric/adolescent dosage Roxann 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[employer] Work Phone: [facility] Work Phone: 11-06-1995 diphtheria, tetanus toxoids and acellular pertussis vaccine Roxann 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[employer] Work Phone: [facility] Work Phone: 11-06-1995 trivalent poliovirus vaccine, live, oral Roxann 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[employer] Work Phone: [facility] Work Phone: 04-07-1995 Chicken Pox (disease) Roxann 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[employer] Work Phone: [facility] Work Phone: 04-12-1992 diphtheria, tetanus toxoids and pertussis vaccine Roxann 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[employer] Work Phone: [facility] Work Phone: 04-12-1992 haemophilus influenz ae type b vaccine, HbOC conjugate Roxann 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DAY CARE DIRECTOR Work Phone: [facility] Work Phone: 04-12-1992 trivalent poliovirus vaccine, live, oral Roxann 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[employer] Work Phone: [facility] Work Phone: 12-15-1991 measles, mumps, rubella, and varicella virus vaccine Roxann 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[employer] Work Phone: [facility] Work Phone: 04-15-1991 diphtheria, tetanus toxoids and pertussis vaccine Roxann 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[employer] Work Phone: [facility] Work Phone: 04-15-1991 haemophilus influenz ae type b vaccine, HbOC conjugate Roxann 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DAY CARE DIRECTOR Work Phone: [facility] Work Phone: 04-15-1991 trivalent poliovirus vaccine, live, oral Roxann 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DAY CARE DIRECTOR Work Phone: [facility] Work Phone: 01-28-1991 diphtheria, tetanus toxoids and pertussis vaccine Roxann 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[employer] Work Phone: [facility] Work Phone: 01-28-1991 haemophilus influenz ae type b vaccine, HbOC conjugate Roxann 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[employer] Work Phone: [facility] Work Phone: 01-28-1991 trivalent poliovirus vaccine, live, oral Roxann 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[employer] Work Phone: [facility] Work Phone: 1990 diphtheria, tetanus toxoids and pertussis vaccine Roxann 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[employer] Work Phone: [facility] Work Phone: 1990 hepatitis B vaccine, pediatric or pediatric/adolescent dosage Roxann 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[employer] Work Phone: [facility] Work Phone: 1990 trivalent poliovirus vaccine, live, oral Roxann 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[employer] Work Phone: [facility] Work Phone: Payers Date Payer Category Payer Unknown [id number] 2017 Unknown 1990 Unknown [id number] 1990 Unknown [id number] 1990 Unknown [id number] Social History Date Type Detail Facility Non-smoker Non-smoker [id number] [address] DO Work Phone: Start: 03-13-2022 [facility] History of tobacco use Passive smoker [facility] Start: 03-13-2022 Tobacco use and exposure Smokeless tobacco non-user [facility] Start: 03-13-2022 End: 05-07-2022 Alcohol intake Current drinker of alcohol (finding) [facility] Start: 03-13-2022 Tobacco Comment dad inside [facility] Start: 02-25-2012 Alcohol Comment occasional, [facility] Start: 1990 Sex Assigned At Not on file [facility] Clinical Notes 10-02-2021 to 05-07-2022 Patient InstructionsConnie Gonzalez APRN.IGLESIA - 05/07/2022 2:43 PM ESTPatient InstructionsRoxann Elder APRN.CNP - 03/13/2022 11:39 AM EST Note Date & Type Note Facility 05-07-2022 Note HNO ID: [id number] Author: Connie Gonzalez APRN.IGLESIA Service: ? Author Type: Nurse Practitioner Type: Progress Notes Filed: 05/07/2022 2:49 PM Note Text: Subjective HPI Jocelyn Hernández is a 31 year old female who presents with right hip pain x 2 weeks. Pain started in right lower back and has now radiated to right hip. She rates her pain 3-4 today. She has been taking tylenol and ibuprofen and muscle relaxer at home. 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 She has had intermittent right anterior thigh numbness. She is typically pain free in the morning, then within half an hour she starts to notice pain in the right hip. Review of Systems Constitutional: Negative for fever. Respiratory: Negative. Cardiovascular: Negative. Musculoskeletal: Positive for back pain and joint pain. Negative for falls. Skin: Negative for rash. BP 102/60 Pulse 76 Temp 36.8 ?C (98.2 ?F) Resp 16 Wt 95.7 kg (211 lb) LMP 04/07/2017 SpO2 98% BMI 34.07 kg/m? PAST MEDICAL HISTORY Diagnosis Date ADHD (attention deficit hyperactivity disorder) PAST SURGICAL HISTORY Procedure Laterality Date PAST SURGICAL HISTORY OF wisdom teeth ALLERGIES Nickel and Seasonal Allergies MEDICATIONS predniSONE (DELTASONE) 10 mg tablet Take 6 tabs for 3 days, then 4 tabs for 3 days, then 2 tabs for 3 days then 1 tab for 3 days with food. nadolol (CORGARD) 20 mg tablet Take by mouth q 24 HR. (Patient not taking: Reported on 05/07/2022) benzonatate (TESSALON PERLE) 100 mg capsule Take 2 capsules by mouth three times daily as needed. (Patient not taking: Reported on 05/07/2022) loratadine (CLARITIN) 10 mg tablet Take 1 tablet by mouth once daily. (Patient not taking: Reported on 03/13/2022) EPINEPHrine (EPIPEN) 0.3 mg/0.3 mL (1:1,000) atIn Use as directed per provided instructions. (Patient not taking: Reported on 05/07/2022) FAMILY HISTORY Problem Relation Age of Onset Hypertension Paternal Grandmother Heart Paternal Grandmother Hypertension Father Social History Tobacco Use Smoking status: Never Passive exposure: Yes Smokeless tobacco: Never Tobacco comments: dad inside Substance Use Topics Alcohol use: Yes Comment: occasional, Drug use: No Objective Physical Exam Vitals and nursing note reviewed. Constitutional: Appearance: She is obese. Cardiovascular: Rate and Rhythm: Normal rate. Pulmonary: Effort: Pulmonary effort is normal. Musculoskeletal: Lumbar back: No swelling, edema, signs of trauma, tenderness or bony tenderness. Negative right straight leg raise test and negative left straight leg raise test. Skin: General: Skin is warm and dry. Findings: No bruising, erythema or rash. Neurological: General: No focal deficit present. Mental Status: She is alert and oriented to person, place, and time. Motor: No weakness. Gait: Gait is intact. Deep Tendon Reflexes: Reflex Scores: Patellar reflexes are 2+ on the right side and 2+ on the left side. ASSESSMENT/PLAN: 1. Sciatica, right side - ICD9: 724.3, ICD10: M54.31 - XR LUMBAR GENERAL 3V AP/LAT/[id number] declined to have xray today - PREDNISONE 10 MG TABLET - ice to lower back - discussed stretches/exercises to help with pain. - Follow-up with your PCP in 3-5 days if symptoms have not improved or sooner if symptoms worsen - Discussed red flags and need for immediate medical evaluation if any occur. - Discussed supportive care treatment with fluids, rest and analgesia. - Discussed expected course of illness Connie Gonzalez APRN.CNP [facility] 05-07-2022 Instructions Connie Gonzalez APRN.CNP - 05/07/2022 2:44 PM EST ASSESSMENT/PLAN: 1. Sciatica, right side - ICD9: 724.3, ICD10: M54.31 - XR LUMBAR GENERAL 3V AP/LAT/P1-L0-bwafiot declined to have xray today - PREDNISONE 10 MG TABLET - ice to lower back - discussed stretches/exercises to help with pain. - Follow-up with your PCP in 3-5 days if symptoms have not improved or sooner if symptoms worsen - Discussed red flags and need for immediate medical evaluation if any occur. - Discussed supportive care treatment with fluids, rest and analgesia. - Discussed expected course of illness Connie Gonzalez APRN.IGLESIA SCIATICA: Your exam shows you have sciatica, a condition most often seen in patients with disc disease of the lower back. Sciatica causes pain to radiate from the lower back or buttock area down the leg. It results from pressure on nerve roots coming out of the spine when a disc deteriorates and pushes to one side. Often there is a history of back problems. In most cases sciatica improves greatly with conservative treatment. Most patients with it are completely better after 2-4 weeks of bed rest and other supportive care. Bed rest reduces the disc pressure greatly; sitting is the worst position since the pressure on the disc is over 5 times greater than it is while lying down. You should avoid bending, lifting, and all other activities which make the problem worse. After the pain improves, you may continue with normal activity, taking brief periods for bed rest throughout the day until you are back to normal. Aspirin, ibuprofen, or other anti-inflammatory drugs are often used to help control pain. Muscle relaxants may help by relieving spasm and providing mild sedation. Cold or heat therapy and massage may also give significant relief. Spinal manipulation is not recommended because it can increase the degree of disc protrusion. Surgery is reserved for patients that do not improve with conservative treatment, or who have signs of severe nerve root pressure. You should see your doctor for follow up care as recommended. A program for back injury rehabilitation with stretching and strengthening exercises is an important part of management. Please call your doctor, a back specialist, or the emergency room right away if you notice increased pain, weakness, or numbness in your legs, or if you have any difficulty with bladder or bowel control. documented in this encounter [facility] 05-07-2022 History of Present illness Narrative Subjective HPI Jocelyn Hernández is a 31 year old female who presents with right hip pain x 2 weeks. Pain started in right lower back and has now radiated to right hip. She rates her pain 3-4 today. She has been taking tylenol and ibuprofen and muscle relaxer at home. 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 She has had intermittent right anterior thigh numbness. She is typically pain free in the morning, then within half an hour she starts to notice pain in the right hip. Review of Systems Constitutional: Negative for fever. Respiratory: Negative. Cardiovascular: Negative. Musculoskeletal: Positive for back pain and joint pain. Negative for falls. Skin: Negative for rash. BP 102/60 Pulse 76 Temp 36.8 C (98.2 F) Resp 16 Wt 95.7 kg (211 lb) LMP 04/07/2017 SpO2 98% BMI 34.07 kg/m PAST MEDICAL HISTORY Diagnosis Date ADHD (attention deficit hyperactivity disorder) PAST SURGICAL HISTORY Procedure Laterality Date PAST SURGICAL HISTORY OF wisdom teeth ALLERGIES Nickel and Seasonal Allergies MEDICATIONS predniSONE (DELTASONE) 10 mg tablet Take 6 tabs for 3 days, then 4 tabs for 3 days, then 2 tabs for 3 days then 1 tab for 3 days with food. nadolol (CORGARD) 20 mg tablet Take by mouth q 24 HR. (Patient not taking: Reported on 05/07/2022) benzonatate (TESSALON PERLE) 100 mg capsule Take 2 capsules by mouth three times daily as needed. (Patient not taking: Reported on 05/07/2022) loratadine (CLARITIN) 10 mg tablet Take 1 tablet by mouth once daily. (Patient not taking: Reported on 03/13/2022) EPINEPHrine (EPIPEN) 0.3 mg/0.3 mL (1:1,000) atIn Use as directed per provided instructions. (Patient not taking: Reported on 05/07/2022) FAMILY HISTORY Problem Relation Age of Onset Hypertension Paternal Grandmother Heart Paternal Grandmother Hypertension Father Social History Tobacco Use Smoking status: Never Passive exposure: Yes Smokeless tobacco: Never Tobacco comments: dad inside Substance Use Topics Alcohol use: Yes Comment: occasional, <weekly Drug use: No Objective Physical Exam Vitals and nursing note reviewed. Constitutional: Appearance: She is obese. Cardiovascular: Rate and Rhythm: Normal rate. Pulmonary: Effort: Pulmonary effort is normal. Musculoskeletal: Lumbar back: No swelling, edema, signs of trauma, tenderness or bony tenderness. Negative right straight leg raise test and negative left straight leg raise test. Skin: General: Skin is warm and dry. Findings: No bruising, erythema or rash. Neurological: General: No focal deficit present. Mental Status: She is alert and oriented to person, place, and time. Motor: No weakness. Gait: Gait is intact. Deep Tendon Reflexes: Reflex Scores: Patellar reflexes are 2+ on the right side and 2+ on the left side. ASSESSMENT/PLAN: 1. Sciatica, right side - ICD9: 724.3, ICD10: M54.31 - XR LUMBAR GENERAL 3V AP/LAT/M8-J0-riyfbhk declined to have xray today - PREDNISONE 10 MG TABLET - ice to lower back - discussed stretches/exercises to help with pain. - Follow-up with your PCP in 3-5 days if symptoms have not improved or sooner if symptoms worsen - Discussed red flags and need for immediate medical evaluation if any occur. - Discussed supportive care treatment with fluids, rest and analgesia. - Discussed expected course of illness Connie Gonzalez APRN.DAY CARE DIRECTOR documented in this encounter [facility] 03-13-2022 Influenza virus A and B RNA and SARS-CoV-2 (COVID-19) N gene panel MCKAYLA+probe (Resp) COVID 19 RESULT: SARS-CoV-2 (Agent of COVID-19) Not Detected by RT-PCR or equivalent method. mian [id number] [employer] (TARIQ)_EUA This test was developed and its performance characteristics determined by [facility]'s [facility]. This test has been authorized by FDA under an Emergency Use Authorization (EUA). This test has been validated in accordance with the FDA's Guidance Document Policy for Diagnostics Testing in Laboratories Certified to Perform High Complexity Testing under CLIA prior to Emergency use Authorization for Coronavirus Disease 2019 during the Public Health Emergency issued on June 05, 2019. Test performed by [facility], [facility], [address] [place] [address]. INFLUENZA A PCR: Positive for Influenza A by RT-PCR INFLUENZA B PCR: Negative for Influenza B by RT-PCR [facility] Comment on above: Performed By: #### [id number] #### [facility] CLIA [id number] [address] [place] [address] [place] 03-13-2022 Note HNO ID: [id number] Author: Roxann Elder APRN.DAY CARE DIRECTOR Service: ? Author Type: Nurse Practitioner Type: Progress Notes Filed: 03/13/2022 11:54 AM Note Text: Subjective The history is provided by the patient. No language and literature division chair was used. HPI Jocelyn Hernández is a 31 year old female who presents today for CC of cough congestion and fever, chills and body aches for four days. She has used dayquil/nyquil with short term relief. She denies any nausea or vomiting. similar symptoms last week, was never tested. BP 100/78 Pulse 84 Temp 37.3 ?C (99.2 ?F) Resp 22 Wt 93.3 kg (205 lb 9.6 oz) LMP 04/07/2017 SpO2 98% BMI 33.20 kg/m? Social History Tobacco Use Smoking status: Never Passive exposure: Yes Smokeless tobacco: Never Tobacco comments: dad inside Substance Use Topics Alcohol use: Yes Comment: occasional, Drug use: No PAST MEDICAL HISTORY Diagnosis Date ADHD (attention deficit hyperactivity disorder) I have confirmed and edited as necessary, the [facility] Review of Systems Constitutional: Positive for chills and malaise/fatigue. Negative for fever. HENT: Positive for congestion, sinus pain and sore throat. Negative for ear pain. Respiratory: Positive for cough. Negative for sputum production, shortness of breath and wheezing. Cardiovascular: Negative for chest pain. Gastrointestinal: Positive for diarrhea. Negative for abdominal pain, nausea and vomiting. Musculoskeletal: Positive for myalgias. Neurological: Positive for headaches. Objective Physical Exam Vitals and nursing note reviewed. HENT: Head: Normocephalic and atraumatic. Right Ear: Tympanic membrane, ear canal and external ear normal. Left Ear: Tympanic membrane, ear canal and external ear normal. Nose: Mucosal edema, congestion and rhinorrhea present. Right Sinus: No maxillary sinus tenderness or frontal sinus tenderness. Left Sinus: No maxillary sinus tenderness or frontal sinus tenderness. Mouth/Throat: Pharynx: Uvula midline. Posterior oropharyngeal erythema (mld) present. No oropharyngeal exudate. Cardiovascular: Rate and Rhythm: Normal rate and regular rhythm. Heart sounds: Normal heart sounds. Pulmonary: Effort: Pulmonary effort is normal. Breath sounds: Normal breath sounds. Lymphadenopathy: Head: Right side of head: No submental, submandibular or tonsillar adenopathy. Left side of head: No submental, submandibular or tonsillar adenopathy. Cervical: No cervical adenopathy. Skin: General: Skin is warm and dry. Neurological: Mental Status: She is alert. Psychiatric: Mood and Affect: Affect normal. ASSESSMENT/PLAN: 1. Flu-like symptoms - ICD9: 780.99, ICD10: R68.89 (primary diagnosis) Home isolation Testing ordered Comfort measures discussed - see patient instructions. When to seek higher level of care Notified in 12-24 hours with results, available on mychart - COVID WITH FLUA+B, ROUTINE 2. URI with cough and congestion - ICD9: 465.9, ICD10: J06.9 - Discussed viral etiology and rationale for treatment. - Symptomatic treatment with prn analgesia - Supportive care with fluids and rest - COVID WITH FLUA+B, ROUTINE Diagnosis and treatment plan were discussed and questions were answered to the patient's satisfaction. Pt acknowledged understanding of concepts and follow up plan. Specific signs and symptoms that would indicate the need for higher level of care were discussed in detail warranting prompt ER evaluation. Roxann Elder APRN.CNP [facility] 03-13-2022 Instructions Roxann Elder APRN.CNP - 03/13/2022 11:44 AM EST covid and influenza test ordered You will be notified in 12-24 hours, [facility] Home isolation until results are back Rest, increase water intake Motrin or Tylenol as needed for fever or pain. Salt water gargles, chloraseptic spray or lozenges as needed for sore throat. Warm beverages, honey. Nasal saline spray as needed Cool mist humidifier at night Tylenol (generic acetaminophen) 500 mg-2 tabs every 8 hrs. as needed for fever and aches Ibuprofen 600 mg (3-200mg tablets) every 6 hours Continue dayquil, nyquil Tesslon perls as needed * Seek medical care immediately, call 911, go to ER if you have chest pain, difficulty breathing, shortness of breath, inability to swallow. documented in this encounter [facility] 03-13-2022 History of Present illness Narrative Subjective The history is provided by the patient. No language and literature division chair was used. HPI Jocelyn Hernández is a 31 year old female who presents today for CC of cough congestion and fever, chills and body aches for four days. She has used dayquil/nyquil with short term relief. She denies any nausea or vomiting. similar symptoms last week, was never tested. BP 100/78 Pulse 84 Temp 37.3 C (99.2 F) Resp 22 Wt 93.3 kg (205 lb 9.6 oz) LMP 04/07/2017 SpO2 98% BMI 33.20 kg/m Social History Tobacco Use Smoking status: Never Passive exposure: Yes Smokeless tobacco: Never Tobacco comments: dad inside Substance Use Topics Alcohol use: Yes Comment: occasional, <weekly Drug use: No PAST MEDICAL HISTORY Diagnosis Date ADHD (attention deficit hyperactivity disorder) I have confirmed and edited as necessary, the [facility] Review of Systems Constitutional: Positive for chills and malaise/fatigue. Negative for fever. HENT: Positive for congestion, sinus pain and sore throat. Negative for ear pain. Respiratory: Positive for cough. Negative for sputum production, shortness of breath and wheezing. Cardiovascular: Negative for chest pain. Gastrointestinal: Positive for diarrhea. Negative for abdominal pain, nausea and vomiting. Musculoskeletal: Positive for myalgias. Neurological: Positive for headaches. Objective Physical Exam Vitals and nursing note reviewed. HENT: Head: Normocephalic and atraumatic. Right Ear: Tympanic membrane, ear canal and external ear normal. Left Ear: Tympanic membrane, ear canal and external ear normal. Nose: Mucosal edema, congestion and rhinorrhea present. Right Sinus: No maxillary sinus tenderness or frontal sinus tenderness. Left Sinus: No maxillary sinus tenderness or frontal sinus tenderness. Mouth/Throat: Pharynx: Uvula midline. Posterior oropharyngeal erythema (mld) present. No oropharyngeal exudate. Cardiovascular: Rate and Rhythm: Normal rate and regular rhythm. Heart sounds: Normal heart sounds. Pulmonary: Effort: Pulmonary effort is normal. Breath sounds: Normal breath sounds. Lymphadenopathy: Head: Right side of head: No submental, submandibular or tonsillar adenopathy. Left side of head: No submental, submandibular or tonsillar adenopathy. Cervical: No cervical adenopathy. Skin: General: Skin is warm and dry. Neurological: Mental Status: She is alert. Psychiatric: Mood and Affect: Affect normal. ASSESSMENT/PLAN: 1. Flu-like symptoms - ICD9: 780.99, ICD10: R68.89 (primary diagnosis) Home isolation Testing ordered Comfort measures discussed - see patient instructions. When to seek higher level of care Notified in 12-24 hours with results, available on [employer] - COVID WITH FLUA+B, ROUTINE 2. URI with cough and congestion - ICD9: 465.9, ICD10: J06.9 - Discussed viral etiology and rationale for treatment. - Symptomatic treatment with prn analgesia - Supportive care with fluids and rest - COVID WITH FLUA+B, ROUTINE Diagnosis and treatment plan were discussed and questions were answered to the patient's satisfaction. Pt acknowledged understanding of concepts and follow up plan. Specific signs and symptoms that would indicate the need for higher level of care were discussed in detail warranting prompt ER evaluation. Roxann Elder APRN.DAY CARE DIRECTOR documented in this encounter [facility] 12-19-2021 Chief complaint Narrative - Reported An interactive audio and video telecommunication system which permits real time communications between the patient (at the originating site) and provider (at the distant site) was utilized to provide this telehealth service.Verbal consent was requested and obtained from JOCELYN HERNÁNDEZ on this date, 12/19/2021 08:15 AM , for a telehealth visit.headachesneck pain -[place] [id number] DO Work Phone: 10-02-2021 Chief complaint Narrative - Reported An interactive audio and video telecommunication system which permits real time communications between the patient (at the originating site) and provider (at the distant site) was utilized to provide this telehealth service.Verbal consent was requested and obtained from JOCELYN FRAGOSO on this date, 10/02/2021 08:00 AM , for a telehealth visit.Headaches [id number] DO Work Phone: Evaluation note Diagnosis Flu-like symptoms- Primary Other general symptoms URI with cough and congestion [facility] Diagnosis Sciatica, right side- Primary [facility] N[facility]* Patient here today to discuss headache. * Reports headaches x 6 months with eye strain, took a break from contacts but it didn t get better. Previously would only get headaches once or twice a week, with gaps in between. * Was getting forehead tension and pain, then whole head gets worse, L>R. Lasik was helpful. Better over time but very slowly. Saw her PCP who prescribed amitriptyline. * Has been more light sensitive after Lasik, but felt better to recover in a dark quiet room even before the Lasik. Headaches associated with photophobia. Denies nausea, dizziness, phonophobia. * Triggers include wearing hair up (particularly in a clip), stress, phone/computer time, neck tightness (computer time, increased work), sound, sleep changes (late nights make it uncomfortable), slouching and posture triggers. * Denies triggers to light, smells, alcohol (actually makes headache feel a little better), weather (will trigger sinuses), certain foods, menses. * Reports 30 headache days per month. Headaches generally occur later in the day, depending on if sheis wearing hair up. Worst headache pain in past month was 5-6/10, usually 2-3/10. * Sleep has been good. Denies depression/anxiety. Daily coffee use, does help with headaches a little, will get withdrawal headaches. 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 * Has tried the following medications and treatments: * Amitriptyline 50mg helped some for pain severity, still daily, but did not resolve completely. Was more flared up before. Made very sedated. Doubling to 100mg was more helpful but made her a zombie. * Past Meds: * Tylenol not helpful when headaches were worse, with amitriptyline helped a little. Using every other day. * Ibuprofen not helpful when headaches were worse, with amitriptyline helped a little. * Magnesium 400mg x 4-6 weeks, did not notice a significant. * Massage is helpful. * This note was partially generated using the [employer] voice recognition system. There may be typographical errors, spelling, or punctuation errors that were not corrected prior to committing the note tothe medical record. [id number] 204 DO Work Phone: History of Present illness Narrative* JOCELYN HERNÁNDEZ presents to [facility] today for new patient evaluation and consultation for integrative treatment options for chronic headache and neck pain * Patient was referred by:Dr. Christopher Najera * chronic headaches: recently saw Dr. Najera and was put on naldolol because she had a recently an uptick in headaches. some form of a headache daily prior to starting naldolol. also suffers from some neck pain. she feels that sometimes her neck pain will cause her headache. she can sometimes get the headache to abort with neck stretches. massage has helped the headaches when she has a headache but it is short term relief. tried dry needling and acupuncture. tried some chiropractor appointments. no new stressors. headaches seemed to have begun with an eye strain that caused pain. went to eye doctor and found that prescription needed adjustment. got lasik which helped her eye strain. But now with the naldolol that she started two weeks ago and she had one headache with a sinus infection. has had tension come on a few times but has not turned into a headache because she tries to correct her posture. * had a thyroid test and it came back fine. denies fatigue. tsh 2.72 06/22/20, 1.64 on 12/28/19 local physician office. 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 non smoker. * Sleep: falls asleep well but does take melatonin 5mg at bedtime. wakes up and feels very stiff in her neck and shoulders. wakes with soreness. * average number of hours: * snoring:denies except sometimes * nightmares: * restless leg: * difficulty falling asleep:no trouble * difficulty staying asleep:no trouble * Activity/Movement:tries to do something each day- walk or weight training. not really any intense cardio besides walking. * Frequency: [] times per week for [] minutes * 24 hour diet recall reviewed and scanned into [facility]. * BREAKFAST: over night oats or protein shake- almond milk optimum nutrition and powder collagen * LUNCH:leftover brocoli and scrambled eggs and cheese * DINNER:turkey kielbasa baked potatoes * SNACKS:peanut butter and jelly on bread * Water/day: water * Caffeine/Day: 2 cups of coffee per day * alcohol use: 1x per week will have 2-3beers per week. * Stress management:likes to read for pleasure when she does not have eye strain. likes to get outside. sees friends. does some yoga. does not use any apps for meditation * Support System:. friends. not really so much her parents who live 30 minutes away * Patient's goal: to decrease how often she is having the migraines. * Patient report their overall health as: [facility] [id number] [facility] Work Phone: History of Present illness Narrative* Patient with history significant for TMJ here today to discuss headache. * Patient notes that her headaches have stopped as she has addressed her TMJ issues. She is wearing anightguard regularly, saw dentist that prescribe ibuprofen for 1 week, notes that the inflammation went down, the tight knots above her temples resolved, and her headaches have stopped. She notes that she is unsure whether or not the light sensitivity is related to her migraine or a symptom of her Lasik procedure. Did not try the rizatriptan medication, still on the nadolol, but interested in stopping, did not seem to have any effect on headaches. She is not interested in rehab for TMJ at this time, she will contact us if she is interested in the future. * Headaches described as occurring with forehead tension and pain, then whole head gets worse, L>R. Headaches associated with photophobia. Denies nausea, dizziness, phonophobia. * Triggers include wearing hair up (particularly in a clip), stress, phone/computer time, neck tightness (computer time, increased work), sound, sleep changes (late nights make it uncomfortable), slouching and posture triggers. Denies triggers to light, smells, alcohol (actually makes headache feel alittle better), weather (will trigger sinuses), certain foods, menses. 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 * Has tried the following medications and treatments: * Nadolol not helpful for headaches. * Rizatriptan did not try the medication. * Cyclobenzaprine sometimes help, but it comes back. Last few days, does not go away. No sedation with it. * Past Meds: * Amitriptyline 50mg helped some for pain severity, still daily, but did not resolve completely. Was more flared up before. Made very sedated. Doubling to 100mg was more helpful but made her a zombie. * Tylenol not helpful when headaches were worse, with amitriptyline helped a little. Using every other day. * Ibuprofen not helpful when headaches were worse, with amitriptyline helped a little. * Magnesium 400mg x 4-6 weeks, did not notice a significant change. * Massage is helpful. * Chiropractic * Record Review: * 10/02/2021 visit note: * Reports headaches x 6 months with eye strain, took a break from contacts but it didn t get better. Previously would only get headaches once or twice a week, with gaps in between. * Lasik was helpful. Better over time but very slowly. Saw her PCP who prescribed amitriptyline. * Has been more light sensitive after Lasik, but felt better to recover in a dark quiet room even before the Lasik. * Reports 30 headache days per month. Headaches generally occur later in the day, depending on if sheis wearing hair up. Worst headache pain in past month was 5-6/10, usually 2-3/10. * Headaches go away when laying down, but can start as work starts. Visual halos with lasik. Jaw popping with TMJ, although has not been an issue lately. * Sleep has been good. Denies depression/anxiety. Daily coffee use, does help with headaches a little, will get withdrawal headaches. * This note was partially generated using the [employer] voice recognition system. There may be typographical errors, spelling, or punctuation errors that were not corrected prior to committing the note tothe medical record. [id number] 170 DO Work Phone: Reason for referral (narrative)* Diagnostic Procedure Only (Urgent) - Authorized Specialty Diagnoses / Procedures Referred By Contac t Referred To Contact XR IMAGING Diagnoses Sciatica, right side Procedures XR LUMBAR GENERAL 3V AP/LAT/L5-S1 RADEX SPINE LUMBOSACRAL 2/3 VIEWS Connie Gonzalez APRN.DAY CARE DIRECTOR [address] [place] [address] Xr Imaging Referral ID Status Reason Start Date Expiration Date Visits Requested Visits Authorized [id number] Authorized Auto-Generat ed Referral 05/07/2022 06/06/2023 1 1 [facility] Summary Purpose Family History No Family History Records FoundUnknown Family Member Name Dates Details Family history of hypertensi on: Father(V17.49, Z82.49) Status:Active Family history of malignant neoplasm of breast: Aunt(V16.3, Z80.3) Status:Active Family history of hypothyroi dism: Mother, Aunt(V18.19, Z83.49) Status:Active Unknown Family Member Name Dates Details Family history of hypertensi on: Father(V17.49, Z82.49) Status:Active Family history of malignant neoplasm of breast: Aunt(V16.3, Z80.3) Status:Active Family history of hypothyroi dism: Mother, Aunt(V18.19, Z83.49) Status:Active Unknown Family Member Name Dates Details Family history of hypertensi on: Father(V17.49, Z82.49) Status:Active Family history of malignant neoplasm of breast: Aunt(V16.3, Z80.3) Status:Active Family history of hypothyroi dism: Mother, Aunt(V18.19, Z83.49) Status:Active Unknown Family Member Name Dates Details Family history of hypertensi on: Father(V17.49, Z82.49) Status:Active Family history of malignant neoplasm of breast: Aunt(V16.3, Z80.3) Status:Active Family history of hypothyroi dism: Mother, Aunt(V18.19, Z83.49) Status:Active Unknown Family Member Name Dates Details Family history of hypertensi on: Father(V17.49, Z82.49) Status:Active Family history of malignant neoplasm of breast: Aunt(V16.3, Z80.3) Status:Active Family history of hypothyroi dism: Mother, Aunt(V18.19, Z83.49) Status:Active Unknown Family Member Name Dates Details Family history of hypothyroi dism: Mother, Aunt(V18.19, Z83.49) Status:Active Family history of malignant neoplasm of breast: Aunt(V16.3, Z80.3) Status:Active Family history of hypertensi on: Father(V17.49, Z82.49) Status:Active Advance Directives No Advanced Directives Records FoundNo Advanced Directives Records FoundNo Advanced Directives Records FoundNo Advanced Directives Records FoundNo Advanced Directives Records Found Chief Complaint Headaches Health Concerns Infection Onset Date Last Indicated Resolved Time COVID-19 Rule-Out 03/13/2022 03/13/2022 Additional Source Comments INFORMATION SOURCE (unrecogn ized section and content) DATE CREATED AUTHOR 09/29/2017 [facility] DATE CREATED AUTHOR AUTHOR'S ORGANIZ ATION 11/23/2019 [facility] DATE CREATED AUTHOR AUTHOR'S ORGANIZ ATION 01/01/2022 [facility] DATE CREATED AUTHOR AUTHOR'S ORGANIZ ATION 01/01/2022 [employer] DATE CREATED AUTHOR AUTHOR'S ORGANIZ ATION 05/08/2022 [facility] Source Comments (unrecognize d section and content) In the event this informatio n is protected by the Federal Confidentiality of Alcohol and Drug Abuse Patient Records regulations: The Federal rules restrict any use of the information to criminally investigate or prosecute any alcohol or drug abuse patient.[facility] the event this information is protected by the Federal Confidentiality of Alcohol and Drug Abuse Patient Records regulations: The Federal rules restrict any use of the information to criminally investigate or prosecute any alcohol or drug abuse patient.[facility] Reason for Visit (unrecogniz ed section and content) Reason Comments Cough Tired, sick x 2 days Reason Comments Right Hip Pain started as low back and leg pain x 2 weeks Care Teams (unrecognized sec tion and content) Sole Tier Relationship Specialty Start Date End Date Afsaneh Alvarez MD [address] [place] [address] PCP - General Internal Medicine 11/01/16 Sole Tier Relationship Specialty Start Date End Date Suman Herman MD [address] [place] [address] PCP - General Family Medicine 05/07/22 FOR RECORDS PERTAINING TO PATIENTS WHO ARE OR HAVE BEEN ENROLLED IN A CHEMICAL DEPENDENCY/SUBSTANCEABUSE PROGRAM, SOME INFORMATION MAY BE OMITTED. This clinical summary was aggregated from multiple sources. Caution should be exercised in using it in the provision of clinical care. This summary normalizes information from multiple sources, and as a consequence, information in this document may materially change the coding, format and clinical context of patient data. In addition, data may be omitted in some cases. CLINICAL DECISIONS SHOULD BE BASED ON THE PRIMARY CLINICAL RECORDS. [employer] [facility]. provides no warranty or guarantee of the accuracy or completeness of information in this document.
[2024-01-29 10:58] LABS: Cholesterol 206 mg/dL (200); High Density Lipoprotein 82 mg/dL; Triglycerides 61 mg/dL; Very Low Density Lipoprotein 12 mg/dL (5-40)
== END | disposition home or self-care (01) ==
LOC: MFPLAB 08:22
PROVIDERS: PCP Family Medicine; Referring Provider Family Medicine; Visit Provider Family Medicine
DX: Z00.00 Encounter for general adult medical examination without abnormal findings (principal)
CPT/HCPCS: 36415; 80061; 84443

== ENCOUNTER → 2025-01-21 | Outpatient (CLI) | payer OTHER, SELFPAY ==
--- OUTSIDE RECORDS SUMMARY | 2025-01-21 10:20 | XMS RPT_ITS | CCD ---
Author Organization [facility] Care Team Providers Care Photovoltaic Technician Name Role Phone Tavgeaee Kd M Unavailable Unavailable Tavallaee, Kd M Unavailable Unavailable Tavallaee, Kd M Unavailable Unavailable Unknown, Unknown Unavailable Unavailable Unavailable Unavailable Suman Herman Unavailable UNKNOWN, UNKNOWN Primary Care Unavailable Self, Referral Referring Unavailable Reinaldo, Ms. Lung Echeverria Attending Suman Fair Primary Care Suman Regan Attending Suman Regan Referring Timbo Arguello, Dr. Wilma Melvin Attending Timbo Arguello, Dr. Wilma Melvin Referring Suman Regan Primary Care Afsaneh Klein MD Primary Care Provider Suman Herman MD Primary Care Provider AFSANEH ALVAREZ Primary Care Unavailable SUMAN HERMAN Primary Care Unavailable CONNIE GONZALEZ Referring Unavailable SUMAN HERMAN Primary Care Unavailable Dr. Marcos Rizo Primary Care Provider Dr. Marcos Rizo Referring Provider LEANNA Jennings Attending Provider [phone] Dr. Julius Rodriguez Attending Provider Dr. Suman Herman Primary Care Provider Nick Odonnell Referring Unavailable Nick Odonnell Attending Unavailable Suman Herman Primary Care Unavailable Allergies Allergy Classification Reported Allergen(s) Allergy Type Date of Onset Reaction(s) Facility (6 sources) bee pollen Allergy to substance (finding) [facility] 204 DO Work Phone: (7 sources) nickel; Translations: [NICKEL] Drug Allergy 3 [facility] Repository (3 sources) nickel Drug Allergy 3 Rash [facility] Work Phone: (3 sources) Seasonal allergy; Translations: [SEASONAL ALLERGIES] Allergy to substance 6 Intolerance [facility] Work Phone: (2 sources) Seasonal Allergies: Uncoded; Translations: [Seasonal Allergies: Uncoded] Allergy to substance 3 Sneezing, itchy eyes [facility] (1 source) nickel Drug Allergy 3 [facility] Repository Medications Current Medications Medication Drug Class(es) Dates Sig (Normalized) Sig (Original) cetirizine hydrochloride 10 mg oral capsule (2 sources) Histamine-1 Receptor Antagonist Start: 06-06-2020 take 1 capsule by mouth once daily Cetirizine (Zyrtec) 10 mg capsule Active 10 MG PO DAILY June 06, 2020 1:00am magnesium oxide 400 mg oral capsule (1 source) Start: 08-23-2022 take 400 mg by mouth once daily Magnesium Oxide Active 400 MG PO DAILY August 23, 2022 12:00am Multivitamin preparation (1 source) Start: 08-23-2022 take 1 tablet by mouth once daily Multivitamin Active 1 TABLET PO DAILY August 23, 2022 12:00am predniSONE 10 mg oral tablet (1 source) [...] Ordered: 25-Dec-2020 DO Start : 25-Dec-2020 Active [id number] 200 actuat albuterol 0.09 mg/actuat metered dose [...] on above: Take 2 capsules by m out three times daily as needed. biotin 10 mg oral tablet (8 sources) Start: 11-08-2021 Biotin 47431 MCG Oral Tablet TAKE DIRECTED. Quantity: 0 Refills: 0 Ordered: 08-Nov-2021 DO Start : 08-Nov-2021 Active Start: 06-06-2020 End: 08-23-2022 take 1 mg by mouth once daily Biotin Discontinued 1 MG PO DAILY June 06, 2020 1:00am August 23, 2022 3:51pm calcium ascorbate 500 mg oral tablet (2 sources) Start: 06-06-2020 End: 08-23-2022 take 500 mg by mouth once daily Ascorbate Calcium (Vitamin C) Discontinued 500 MG PO DAILY June 06, 2020 1:00am August 23, 2022 3:51pm cholecalciferol 0.05 mg oral capsule (2 sources) Vitamin D Start: 06-06-2020 End: 08-23-2022 take 50 ug by mouth once daily Cholecalciferol (Vitamin D3) Discontinued 50 MCG PO DAILY June 06, 2020 1:00am August 23, 2022 3:51pm cyclobenzaprine hydrochloride 5 mg oral tablet (7 sources) Muscle Relaxant Start: 11-02-2021 take 1 tablet by mouth twice daily as needed Cyclobenzaprine HCl - 5 MG Oral Tablet TAKE 1 TABLET 2 TIMES DAILY NEEDED. Quantity: 60 Refills: 0 Ordered: 04-Mar-2022 Reinaldo WEST-SCRIPT EDITOR, Lung Start : 02-Nov-2021 Active [id number] 0.3 ml EPINEPHrine 1 mg/ml auto-injector (2 sources) alpha-Adrenergic Agonist, beta-Adrenergic Agonist, Catecholamine Start: 11-23-2014 EPINEPHrine (EPIPEN) 0.3 mg/0.3 mL (1:1,000) atIn Use as directed per provided instructions. 2 Each 1 11/23/2014 Active Comment on above: Use as directed per provided instructions. fluticasone propionate 0.05 mg/actuat metered dose nasal spray (8 sources) Corticosteroid Start: 11-08-2021 Flonase Allergy Relief 50 MCG/ACT Nasal Suspension USE DIRECTED. Quantity: 0 Refills: 0 Ordered: 08-Nov-2021 DO Start : 08-Nov-2021 Active Start: 06-06-2020 take 1 spray(s) nasa l route once daily Fluticasone Propionate Active 1 SPRAY INTRANASAL DAILY June 06, 2020 1:00am administer into each nostril ibuprofen 400 mg oral tablet (7 sources) Nonsteroidal Anti-inflammatory Drug Start: 11-02-2021 take 1 tablet by mouth three times daily at mealtime IBU 400 MG Oral Tablet TAKE 1 TABLET 3 TIMES DAILY WITH MEALS. Quantity: 60 Refills: 1 Ordered: 02-Nov-2021 Reinaldo RESEARCH COMPLIANCE SPECIALIST-SCRIPT EDITOR, Lung Start : 02-Nov-2021 Active krill oil 500 mg oral capsule (6 sources) Start: 11-08-2021 Krill Oil 500 MG Oral Capsule Take as directed Quantity: 0 Refills: 0 Ordered: 08-Nov-2021 DO Start : 08-Nov-2021 Active loratadine 10 mg oral tablet (2 sources) Start: 11-23-2014 take 1 tablet by mouth once daily loratadine (CLARITIN) 10 mg tablet Take 1 tablet by mouth once daily. 30 tablet 11 11/23/2014 Active Comment on above: Take 1 tablet by mouth once daily. magnesium citrate 125 mg oral [...] Quantity: 30 Refills: 4 Ordered: 08-Jan-2022 Reinaldo JAIME, Lung Start : 06-Dec-2021 Active Restart medication Start: 12-06-2021 take 1 tablet by mikey th every twenty-four hours nadolol (CORGARD) 20 mg tablet Take by mouth q 24 HR. 0 12/06/2021 Active Comment on above: Take by mouth q 24 H R. rizatriptan 5 mg oral tablet (5 sources) Serotonin-1b and Serotonin-1d Receptor Agonist Start: take 1 tablet by mouth every two hours as needed, then take 3 tablets by mouth every twenty-four hours as needed Rizatriptan Benzoate 5 MG Oral Tablet TAKE 1 TABLET AT ONSET OF HEADACHE. MAY REPEAT EVERY 2 HOURS NEEDED. MAXIMUM 3 TABLETS IN 24 HOURS. Quantity: 12 Refills: 5 Ordered: 02-Oct-2021 Reinaldo JAIME, Lung Start : 02-Oct-2021 Active tranexamic acid 650 mg oral tablet (2 sources) Antifibrinolytic Agent Start: End: Tranexamic Acid (Lysteda) 650 mg tablet Discontinued 1300 MG PO .COMPLEX 60 June 06, 2020 1:00am August 23, 2022 3:51pm 1,300 mg PO tid up to 5 days with menses; ubidecarenone 50 mg oral capsule (6 sources) Start: CoQ-10 50 MG Oral Capsule Take as directed Quantity: 0 Refills: 0 Ordered: 08-Nov-2021 DO Start : 08-Nov-2021 Active Vitamin B Complex (2 sources) Start: End: take 1 capsule by mouth once daily Vitamin B Complex Discontinued 1 CAP PO DAILY June 06, 2020 1:00am August 23, 2022 3:51pm Start: 06-06-2020 take 1 capsule by mouth once d aily Vitamin B Complex Active 1 CAP PO DAILY June 06, 2020 12:00am Problems Problem Classification Problem Date Documented Date Episodic/Chronic Attention-deficit, conduct, and disruptive behavior disorders (2 sources) Attention deficit hyperactivity disorder; Translations: [Attention-deficit hyperactivity disorder, unspecified type] 04-02-2021 Chronic Disorders of teeth and jaw (3 sources) Temporomandibular wbsak-ghjk-zmxldxtialg syndrome; Translations: [Other specified temporomandibular joint disorders] Episodic Headache; including migraine (8 sources) Migraine without aura, not refractory ; Translations: [Chronic migraine without aura, without mention of intractable migraine without mention of status migrainosus] Chronic Malaise and fatigue (4 sources) Fatigue; Translations: [Other malaise and fatigue] Episodic Menstrual disorders (2 sources) Dysmenorrhea; Translations: [Dysmenorrhea, unspecified] 08-23-2022 Chronic Other female genital disorders (1 source) Postcoital bleeding; Translations: [Postcoital and contact bleeding] 08-23-2022 Chronic Other female genital disorders (1 source) Abnormal uterine bleeding; Translations: [Abnormal uterine and vaginal bleeding, unspecified] 08-23-2022 Chronic Other female genital disorders (1 source) Abnormal uterine and vaginal bleeding, unspecified; Translations: [Unspecified disorders of menstruation and other abnormal bleeding from female genital tract] 08-23-2022 Chronic Other female genital disorders (1 source) Postcoital and contact bleeding; Translations: [Postcoital bleeding] 08-23-2022 Chronic Other upper respiratory infections (1 source) Upper respiratory infection; Translations: [Acute upper respiratory infection, unspecified] Episodic Residual codes; unclassified (1 source) Influenza-like symptoms; Translations: [Other general symptoms and signs] Episodic Spondylosis; intervertebral disc disorders; other back problems (2 sources) Herniation of nucleus pulposus; Translations: [Other intervertebral disc displacement, lumbosacral region] 09-04-2022 Chronic Spondylosis; intervertebral disc disorders; other back problems (10 sources) Neck pain; Translations: [Cervicalgia] Onset: 05-07-2022 Episodic Results Test Name Value Interpretation Reference Range Facility Lipid Profileon 01-29-2024 Cholesterol [Mass/Vol] 206 mg/dL High 200 [facility] Comment on above: Result Comment: <200 mg/dL Desirable 200-240 mg/dL Borderline >240 mg/dL High Risk Performed By: #### L [id number], L500.4100 #### [facility] [address] [place], [address] Cholesterol in HDL [Mass/Vol] 82 mg/dL Normal [facility] Comment on above: Result Comment: The drugs N-Acetylcysteine and Metamizole may falsely depress this assay. Reference Range HDL <40 mg/dL Low HDL Cholesterol HDL >or= 60 mg/dL High HDL Cholesterol Performed By: #### L [id number], L500.4100 #### [facility] [address] [place], [address] Cholesterol in LDL [Mass/Vol] 112 mg/dL Normal 0-130 [facility] Comment on above: Performed By: #### L [id number], L500.4100 #### [facility] [address] [place], [address] Cholesterol in VLDL [Mass/Vol] 12 mg/dL Normal 5-40 [facility] Comment on above: Performed By: #### L [id number], L500.4100 #### [facility] [address] [place], [place], [address] Triglyceride [Mass/Vol] 61 mg/dL Normal [facility] Comment on above: Result Comment: The drugs N-Acetylcysteine and Metamizole may falsely depress this assay. Serum Triglycerides Reference Interval Normal <150 mg/dL Borderline high 150 - 199 mg/dL High 200 - 499 mg/dL Very High > or = 500 mg/dL Performed By: #### L [id number], L500.4100 #### [facility] [address] [place], [place], [address] Thyroid Stim Hormone (TSH)on 01-29-2024 TSH 1.860 uIU/mL Normal 0.358-3.740 [facility] Comment on above: Performed By: #### L [id number], L500.4100 #### [facility] [address] [place], [place], [address] Thin prep Papanicolaou smear with manual screeningOrdered By: Ava Jennings on 08-26-2022 Thin prep Papanicolaou smear with manual screening Neisseria or beta-hemolytic Streptococcus isolated. [facility] Gram stain for investigation of transfusion reactionOrdered By: Ava Jennings on 08-24-2022 Microscopic observation Gram stain Nom (Unsp spec) [facility] CNOVon 05-07-2022 CNOV Office Visit ([facility] ) JOCELYN HERNÁNDEZ ([id number]) 1990 F Date Time Provider Department 05/07/22 2:30 PM [facility] During your visit today, we recorded the following information about you: Temperature Pulse Respiration Blood pressure 98.2 degrees 76/minute 16/minute 102/60 Weight 95.7 kg Connie Gonzalez APRN.SCRIPT EDITOR 05/07/2022 2:49 PM Signed Subjective HPI Jocelyn Hernández is a 31 year old female who presents with right hip pain x 2 weeks. Pain started in right lower back and has now radiated to right hip. She rates her pain 3-4 today. She has been taking tylenol and ibuprofen and muscle relaxer at home. 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 Normal [facility] CNOVon 03-13-2022 CNOV Office Visit ([facility] ) JOCELYN HERNÁNDEZ ([id number]) 1990 F Date Time Provider Department 03/13/22 11:45 AM ROXANN ELDER [facility] During your visit today, we recorded the following information about you: Temperature Pulse Respiration Blood pressure 99.2 degrees 84/minute 22/minute 100/78 Weight 93.3 kg Roxann Elder APRN.SCRIPT EDITOR 03/13/2022 11:54 AM Signed Subjective The history is provided by the patient. No speech and language specialist was used. HPI Jocelyn Hernández is a [...] have confirmed and edited as necessary, the [facility] Review of Systems Constitutional: Positive for [...] in 12-24 hours with results, available on Lust have it! - COVID WITH FLUA+B, ROUTINE 2. URI [...] prompt ER evaluation. Roxann Elder APRN.IGLESIA Elder APRN.CNP 03/13/2022 11:44 AM Signed covid and influenza test ordered You will be notified in 12-24 hours, results available on MyChart Home isolation until results are back Rest, [...] congestion [J06.9] (more content not included)... Normal [facility] Office Visit ([facility])on 12-19-2021 Follow-up visit Diagnoses/Problems Assessed Cervicalgia (723.1) [...] not intractable Vitamin D 25-Hydroxy; Status:Active; Requested for:19Dec2021; Fatigue Complete Blood Count + Differential; Status:Active; Requested for:19Dec2021; TSH WITH REFLEX TO FREE T4 IF ABNORMAL; Status:Active; Requested for:19Dec2021; Vitamin B12, Serum; Status:Active; Requested for:19Dec2021; Patient Discussion/Summary 1. try to wean coffee to one cup per day. 2. suggest start pure encapsulation multi one. 3. try no dairy for six weeks to see if it improves congestion and headaches. 4. continue urgent care nurse practitioner, stretching. 5. 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 non smoker. [...] hour diet recall reviewed and scanned into [employer]. BREAKFAST: over night oats or protein shake- [...] not use any apps for meditation Support System:[employer] (more content not included)... Normal [facility] GLUCOSE,FASTINGon 12-07-2021 Glucose [Mass/Vol] 81 mg/dL Normal 74 - 99 [facility] Comment on above: Result Comment: INCR EASED RISK FOR DIABETES 100-125 mg/dL DIAGNOSTIC OF DIABETES >=126 mg/dL Diagnosis of diabetes mellitus requires confirmation of an abnormal result by repeat testing. [place] [employer], Diabetes Care; 33(Supp 1), Apr 2009. Performed By: #### G LUCF #### [address] [address] Glucose, Fastingon 2 Glucose post fast [Mass/Vol] 81 mg/dL 74 - 99 [facility] Work Phone: Comment on above: INCREASED RISK FOR D IABETES 100-125 mg/dL DIAGNOSTIC OF DIABETES >=126 mg/dL Diagnosis of diabetes mellitus requires confirmation of an abnormal result by repeat testing. [place] [employer], Diabetes Care; 33(Supp 1), Apr 2009. LIPID PANEL (CORONARY RISK 2 )on 12-07-2021 Cholesterol [Mass/Vol] 204 mg/dL High 0 - 199 [facility] Comment on above: Result Comment: . AGE [...] guidelines reference: NCEP ATPIII Guidelines, ADALBERTO 2001, 258:2486-97 . Venipuncture immediately after or during the administration of Metamizole may lead to falsely low results. Testing should be performed immediately prior to Metamizole dosing. Performed By: #### L IPID #### [address] [address] Cholesterol in HDL [Mass/Vol] 68.0 mg/dL Normal [facility] Comment on above: Result Comment: . AGE VERY LOW LOW NORMAL HIGH 0-19 Y < 35 < 40 40-45 ---- 20-24 Y ---- < 40 >45 ---- >24 Y ---- < 40 40-60 >60 . Performed By: #### L IPID #### [address] [address] Cholesterol in LDL [Mass/Vol] 117 mg/dL High 0 - 99 [facility] Comment on above: Result Comment: . NEAR BORD AGE DESIRABLE OPTIMAL HIGH HIGH VERY HIGH 0-19 Y 0 - 109 --- 110-129 >/= 130 ---- 20-24 Y 0 - 119 --- 120-159 >/= 160 ---- >24 Y 0 - 99 100-129 130-159 160-189 >/=190 . Performed By: #### L IPID #### [address] [address] Cholesterol in VLDL [Mass/Vol] 19 mg/dL Normal 0 - 40 [facility] Comment on above: Performed By: #### L IPID #### [address] [address] Cholesterol.total/Ch olesterol in HDL [Mass ratio] 3.0 {ratio} Normal [facility] Comment on above: Result Comment: REF VALUES DESIRABLE < 3.4 HIGH RISK > 5.0 Performed By: #### L IPID #### [address] [address] Triglyceride [Mass/Vol] 93 mg/dL Normal 0 - 149 [facility] Comment on above: Result Comment: . AGE [...] dosing. Performed By: #### L IPID #### [address] [address] Lipid Panelon 12-07-2021 Cholesterol [Mass/Vol] 204 mg/dL above high threshold 0 - 199 [employer] [facility] Work Phone: Comment on above: . [...] dosing. Cholesterol in HDL [Mass/Vol] 68.0 mg/dL [employer] [facility] Work Phone: Comment on above: . AGE VERY LOW LOW N ORMAL HIGH 0-19 Y < 35 < 40 40-45 ---- 20- 24 Y ---- < 40 >45 ---- >24 Y ---- < 40 40-60 >60. Cholesterol in LDL [Mass/Vol] 117 mg/dL above high threshold 0 - 99 [employer] [facility] Work Phone: Comment on above: . NEAR BORD AGE EDEL RABLE OPTIMAL HIGH HIGH VERY HIGH 0-19 Y 0 - 109 --- 110-129 >/= 130 ---- 20-24 Y 0 - 119 --- 120-159 >/= 160 ---- >24 Y 0 - 99 100-129 130-159 160-189 >/=190. Cholesterol.total/Ch olesterol in HDL [Mass ratio] 3.0 {ratio} [employer] [facility] Work Phone: Comment on above: REF VALUESDESIRABLE < 3.4HIGH RISK > 5.0 Triglyceride [Mass/Vol] 93 mg/dL 0 - 149 [employer] [facility] Work Phone: Comment on above: . [...] Lipid Panel 19 mg/dL 0 - 40 [facility] Work Phone: Office Visit (Primary Care T xt/Forms)on 12-04-2021 Follow-up visit Diagnoses/Problems Health Maintenance/Risks Encounter for preventive health examination (V70.0) (Z00.00) Orders Health Maintenance Glucose, Fasting; Status:Active; Requested for:04Dec2021; Lipid Panel; Status:Active; Requested for:04Dec2021; SocHx: Non-smoker Tobacco Use Screening; Status:Complete; Done: [...] Problems History of Corneal lasik History of [place] tooth extraction Family History Mother Family history [...] DAILY, MIX 50/50 WITH CERAVE LOTION Biotin 74101 MCG Oral TabletTAKE DIRECTED. CoQ-10 50 MG [...] NonMedication Nickel Pollen Vitals Vital Signs Recorded: [id number] 03:30PM Heart Rate: 83 Systolic: 112 Diastolic: [...] No murmur, No gallop. Integumentary: Warm, Dry, Barclay, Intact. Psychiatric: Cooperative, Appropriate mood AND affect, Normal judgment. Signatures Electronically signed by : Suman Herman MD; Dec 04 2021 3:56PM EST (Author) Normal [facility] Tobacco Screening.on 022 Adult depression screening assessment No [facility] [place] [facility] DO Work Phone: Fall risk assessment a) No falls within the last year [facility] [place] [facility] DO Work Phone: Tobacco use status CP b) No 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 Interested in acupuncture. Consider aimovig for prevention if MOH is not improved. Botox may be an option. Patient Discussion/Summary Advised ergonomic evaluation at workstation. Avoid using Tylenol or Ibuprofen for more than 3 days per week. Can stop the medication all together to Evaluation for possible medication overuse headache. [facility] referral for non-pharmacologic treatment alternatives for migraine. Rizatriptan for rescue. Please call our office at [phone] to leave a message with my secretary receptionist if you have any questions or concerns. Please contact me on the [employer] application if you cannot reach me through the phone. Return to clinic in 3 months or in person or earlier as needed. Diagnoses/Problems Assessed Chronic migraine without aura without status migrainosus, not intractable (346.70) (G43.709) Cervicalgia (723.1) (M54.2) Orders Cervicalgia [facility] Medicine Referral Evaluation and Treatment Evaluate AND [...] This note was partially generated using the [employer] voice recognition system. There may be typographical [...] 11-17-2019 SARS-COV-2 NOT DETECTED Normal NOT DETECTED [facility] Comment on above: Order Comment: [facility] Agent Suspected: SARS-COV-2 This test was performed [...] or clinically deteriorating. Performed By: #### L [id number] #### [facility] (DEFAULT) [address] [place] [address] Vital Signs Date Time Vital Sign Value Performing Clinician Facility 09-04-2022 09:22-0400 Body height 167.[address] Marcos Rizo Work Phone: [facility] 09-04-2022 09:22-0400 Body mass index (BMI) [Ratio] 32.4 kg/m2 Dr. Marcos Rizo Work Phone: [facility] 09-04-2022 09:22-0400 Body weight 91.[address] Marcos Rizo Work Phone: [facility] 08-23-2022 15:52-0400 Body mass index (BMI) [Ratio] 32.4 kg/m2 Dr. Marcos Rizo Work Phone: [facility] 08-23-2022 15:52-0400 Body weight 91.[address] Marcos Rizo Work Phone: [facility] 08-23-2022 15:52-0400 Diastolic blood pressure 74 mm[Hg] Dr. Marcos Rizo Work Phone: [facility] 08-23-2022 15:52-0400 Systolic blood pressure 114 mm[Hg] Dr. Marcos Rizo Work Phone: [facility] 05-07-2022 14:22-0500 Body temperature 98.2 [degF] Connie Praisler-Wood RESEARCH COMPLIANCE SPECIALIST.SCRIPT EDITOR Work Phone: [facility] 05-07-2022 14:22-0500 Body weight 95.71 kg Connie Praisler-Wood RESEARCH COMPLIANCE SPECIALIST.SCRIPT EDITOR Work Phone: [facility] 05-07-2022 14:22-0500 Diastolic blood pressure 60 mm[Hg] Connie Praisler-Wood RESEARCH COMPLIANCE SPECIALIST.SCRIPT EDITOR Work Phone: [facility] 05-07-2022 14:22-0500 Heart rate 76 /min Connie Praisler-Wood RESEARCH COMPLIANCE SPECIALIST.SCRIPT EDITOR Work Phone: [facility] 05-07-2022 14:22-0500 Respiratory rate 16 /min Connie Praisler-Wood RESEARCH COMPLIANCE SPECIALIST.SCRIPT EDITOR Work Phone: [facility] 05-07-2022 14:22-0500 SaO2% (BldA) [Mass fraction] 98 % Connie Praisler-Wood RESEARCH COMPLIANCE SPECIALIST.SCRIPT EDITOR Work Phone: [facility] 05-07-2022 14:22-0500 Systolic blood pressure 102 mm[Hg] Connie Praisler-Wood RESEARCH COMPLIANCE SPECIALIST.SCRIPT EDITOR Work Phone: [facility] 03-13-2022 11:30-0500 Body temperature 99.19 [degF] Roxann Jerrod RESEARCH COMPLIANCE SPECIALIST.SCRIPT EDITOR Work Phone: [facility] 03-13-2022 11:30-0500 Body weight 93.26 kg Roxann Jerrod RESEARCH COMPLIANCE SPECIALIST.SCRIPT EDITOR Work Phone: [facility] 03-13-2022 11:30-0500 Diastolic blood pressure 78 mm[Hg] Roxann Jerrod RESEARCH COMPLIANCE SPECIALIST.SCRIPT EDITOR Work Phone: [facility] 03-13-2022 11:30-0500 Heart rate 84 /min Roxann Jerrod RESEARCH COMPLIANCE SPECIALIST.SCRIPT EDITOR Work Phone: [facility] 03-13-2022 11:30-0500 Respiratory rate 22 /min Roxann Jerrod RESEARCH COMPLIANCE SPECIALIST.SCRIPT EDITOR Work Phone: [facility] 03-13-2022 11:30-0500 SaO2% (BldA) [Mass fraction] 98 % Roxann Jerrod RESEARCH COMPLIANCE SPECIALIST.SCRIPT EDITOR Work Phone: [facility] 03-13-2022 11:30-0500 Systolic blood pressure 100 mm[Hg] Roxann Jerrod RESEARCH COMPLIANCE SPECIALIST.SCRIPT EDITOR Work Phone: [facility] 01-02-2022 15:35-0400 Body height 167.64 cm Suman Herman Work Phone: LO-Jgojmqcck-Folfj a 170 DO Work Phone: 01-02-2022 15:35-0400 Body mass index (BMI) [Ratio] 32.93 kg/m2 Suman Gonzalezess Work Phone: DN-Yumjcovhl-Jhzud a 170 DO Work Phone: 01-02-2022 15:35-0400 Body surface area Derived from formula 2.02 m2 Suman Mckinney Furness Work Phone: XY-Ngbiyxnzl-Lwyyw a 170 DO Work Phone: 01-02-2022 15:35-0400 Body temperature 98.3 [degF] Suman Mckinney Furness Work Phone: RY-Uvcsgejjf-Zlfmn a 170 DO Work Phone: 01-02-2022 15:35-0400 Body weight 92.53 kg Suman Mckinney Furness Work Phone: NE-Vubdobwcc-Ekewc a 170 DO Work Phone: 01-02-2022 15:35-0400 Diastolic blood pressure 68 mm[Hg] Suman Gonzalezess Work Phone: LS-Wnplgjmrg-Gvkwl a 170 DO Work Phone: 01-02-2022 15:35-0400 Heart rate 67 /min Suman Gonzalezess Work Phone: RW-Yedbqzdmu-Qtdku a 170 DO Work Phone: 01-02-2022 15:35-0400 Systolic blood pressure 103 mm[Hg] Suman Gonzalezess Work Phone: GZ-Guohmshaq-Szeya a 170 DO Work Phone: 12-04-2021 15:30-0400 Body height 167.64 cm Suman Mckinney Furness Work Phone: HU-Zcydturej-Neplm ban 204 DO Work Phone: 12-04-2021 15:30-0400 Body mass index (BMI) [Ratio] 32.84 kg/m2 Suman Mckinney Furness Work Phone: QB-Xbfpujgoi-Eoxcf ban 204 DO Work Phone: 12-04-2021 15:30-0400 Body surface area Derived from formula 2.01 m2 Suman Mckinney Furness Work Phone: WG-Lpnhbpgfk-Uirnd ban 204 DO Work Phone: 12-04-2021 15:30-0400 Body weight 92.28 kg Suman Gonzalezess Work Phone: BQ-Spuxtrynx-Mlxsw ban 204 DO Work Phone: 12-04-2021 15:30-0400 Diastolic blood pressure 66 mm[Hg] Suman Mckinney Furness Work Phone: NO-Rqtxfhdvr-Zzobq ban 204 DO Work Phone: 12-04-2021 15:30-0400 Heart rate 83 /min Suman T Furness Work Phone: VE-Tuicsyrmo-Ctdrb ban 204 DO Work Phone: 12-04-2021 15:30-0400 SaO2% (BldA) [Mass fraction] 98 % Suman Mckinney Furness Work Phone: JW-Qdfpmvmdf-Swbue ban 204 DO Work Phone: 12-04-2021 15:30-0400 Systolic blood pressure 112 mm[Hg] Suman Mckinney Furness Work Phone: IQ-Kxdzdukki-Pmqml ban 204 DO Work Phone: Encounters Encounter Date Encounter Type Care Provider Facility Start: 02-19-2024 Encounter for genera l adult medical examination without abnormal findings Nick Odonnell [facility] Start: 01-29-2024 End: 01-29-2024 ambulatory Nick Odonnell Facility:[facility] Start: 09-04-2022 End: 09-04-[address] Marcos Rizo Work Phone: [facility] Start: 08-30-2022 End: 08-30-[address] Marcos Rizo Work Phone: [facility] Work Phone: Start: 08-30-2022 End: 08-30-[address] Marcos Rizo Work Phone: [facility] Ultrasound Start: 08-23-2022 End: 08-23-[address] Marcos Rizo Work Phone: [facility]-Laboratory, Specimen Start: 08-23-2022 End: 08-23-[address] Marcos Rizo Work Phone: [facility] Start: 05-07-2022 AUDIT Suman ambriz Work Phone: [facility] Work Phone: Start: 05-07-2022 End: 05-07-2022 ambulatory SUMAN HERMAN Facility:[facility] Start: 05-07-2022 End: 05-07-2022 Patient encounter procedure Connie Gonzalez APRN.SCRIPT EDITOR Work Phone: [facility] Comment on above: Sciatica, right side (Primary Dx) Start: 03-13-2022 End: 03-13-2022 ambulatory AFSANEH GANTA Facility:[facility] Start: 03-13-2022 End: 03-13-2022 Patient encounter procedure Roxann Elder APRN.SCRIPT EDITOR Work Phone: [facility] Comment on above: Flu-like symptoms (P rimary Dx); URI with cough and congestion Start: 03-04-2022 AUDIT Suman ambriz Work Phone: [facility] 2300 Work Phone: Start: 01-02-2022 Office outpatient vi sit 15 minutes Suman Herman Work Phone: [facility] 170 DO Work Phone: Start: 12-19-2021 Office outpatient ne w 60 minutes Suman Herman Work Phone: [facility] [address] DO Work Phone: Start: 12-19-[address] Wilma Arguello Facility:[id number] Start: 12-11-2021 Chart Update Suman ambriz Work Phone: [facility] Work Phone: Start: 12-06-2021 AUDIT Suman ambriz Work Phone: QN-Uybjarvha-Bqansafw 204 DO Work Phone: Start: 12-04-2021 ambulatory Suman bruno [facility] Facility:[id number] Start: 11-28-2021 End: 11-28-2021 ambulatory [facility] Work Phone: Start: 11-28-2021 End: 11-28-2021 Discharged Recurring [facility]-Physical Therapy Start: 11-02-2021 AUDIT Unknown Unknown [facility] Work Phone: Start: 10-02-2021 Phys/qhp telephone evaluation 21-30 min Unknown Unknown HO-Xcwqryedv-Iybqcjjr 204 DO Work Phone: Start: 10-02-2021 ambulatory UNKNOWN UNKNOWN Facilit y:[id number] Start: 04-29-2017 End: 04-30-2017 Ambulatory Kd Baxter Deyaelsa Facility:[facility] Internal Medicine Procedures Date Procedure Procedure Detail Performing Clinician Start: 08-30-[address] Marcos Rizo Work Phone: Cytopathology proced ure, preparation of smear, genital source Dr. Marcos Rizo Work Phone: Extraction of wisdom tooth P kevin Herman Work Phone: Investigation of transfusion reaction Dr. Marcos Rizo Work Phone: Laser assisted in si tu keratomileusis Suman Herman Work Phone: Plan of Treatment Date Care Activity Detail Author Start: 04-07-2022 DEPRESSION ASSESSMENT DEPRESSION [facility] Start: 03-13-2022 End: 03-27-2022 Influenza virus A and B RNA and SARS-CoV-2 (COVID-19) N gene panel - Respiratory specimen by MCKAYLA with probe detection COVID WITH FLUA+B, ROUTINE Microbiology Routine Flu-like symptoms URI with cough and congestion Expected: 03/13/2022, Expires: 03/27/[address] [facility] Work Phone: Comment on above: Expected: 03/13/2022 , Expires: 03/27/2022 Start: 01-02-2022 FUVGENERAL, Provider : Chirstopher Najera, Status: Pen, Time: 3:30 PM FUVGENERAL, Provider: Christopher Najera, Status: Pen, Time: 3:30 PM [facility] Work Phone: Start: 12-19-2021 VIRNPVHOME, Provider : Wilma Arguello, Status: Pen, Time: 8:15 AM VIRNPVHOME, Provider: Wilma Arguello, Status: Pen, Time: 8:15 AM OJ-Accdomngg-Ficcgvtl 204 DO Work Phone: Start: 12-06-2021 Influenza vaccination INFLUENZA (#1) [facility] Start: 12-04-2021 NPV, Provider: Suman Herman, Status: Pen, Time: 3:20 PM NPV, Provider: Suman Herman, Status: Pen, Time: 3:20 PM SI-Vwvskcgjh-Pwhzpmmi 204 DO Work Phone: Start: 11-12-2021 VIRNPVHOME, Provider : Wilma Arguello, Status: Pen, Time: 11:15 AM VIRNPVHOME, Provider: Wilma Arguello, Status: Pen, Time: 11:15 AM SI-Wccejciwu-Jklogft 5th Work Phone: Start: 04-07-2021 DEPRESSION ASSESSMENT DEPRESSION ASS ESSMENT [facility] Start: 2020 HPV TESTING HPV TESTING [facility] Start: 06-27-2020 COVID-19 VACCINE (3 - Booster for Pfizer series) COVID-19 VACCINE (3 - Booster for Pfizer series) [facility] Start: 10-06-2019 PAP TESTING PAP TESTING [facility] Start: 10-14-2017 Urine microalbumin profile DTAP,TDAP,TD (7 - Td or Tdap) [facility] Start: 2008 HEPATITIS C SCREENING HEPATITIS C [facility] Start: 2008 HIV SCREENING HIV SCREENING [facility] MR Lumbar spine [facility] End: 06-06-2023 Radex spine lumbosacral 2/3 views XR LUMBAR GENERAL 3V AP/LAT/L5-S1 Radiology STAT Sciatica, right side 1 Occurrences starting 05/07/2022 until 06/06/[address] [facility] Work Phone: Comment on above: 1 Occurrences starti ng 05/07/2022 until 06/06/2023 Immunizations Immunization Date Immunization Notes Care Provider Annalee gregg 01-30-2016 influenza, injectabl e, quadrivalent, contains preservative Roxann Jerrod RESEARCH COMPLIANCE SPECIALIST.[facility] Work Phone: [facility] Work Phone: 01-04-2015 influenza, injectabl e, quadrivalent, contains preservative Roxann Jerrod RESEARCH COMPLIANCE SPECIALIST.[facility] Work Phone: [facility] 10-15-2007 Meningococcal, MCV4, unspecified conjugate formulation(groups A, C, Y and W-135) Roxann Jerrod RESEARCH COMPLIANCE SPECIALIST.SCRIPT EDITOR Work Phone: [facility] Work Phone: 10-15-2007 tetanus toxoid, redu jada diphtheria toxoid, and acellular pertussis vaccine, adsorbed Roxann Jerrod RESEARCH COMPLIANCE SPECIALIST.SCRIPT EDITOR Work Phone: [facility] Work Phone: 10-18-2002 measles, mumps, rubella, and varicella virus vaccine Roxann Jerrod RESEARCH COMPLIANCE SPECIALIST.SCRIPT EDITOR Work Phone: [facility] Work Phone: 12-08-1998 hepatitis B vaccine, pediatric or pediatric/adolescent dosage Roxann Jerrod RESEARCH COMPLIANCE SPECIALIST.SCRIPT EDITOR Work Phone: [facility] Work Phone: 02-07-1998 hepatitis B vaccine, pediatric or pediatric/adolescent dosage Roxann Jerrod RESEARCH COMPLIANCE SPECIALIST.SCRIPT EDITOR Work Phone: [facility] Work Phone: 11-06-1995 diphtheria, tetanus toxoids and acellular pertussis vaccine Roxann Jerrod RESEARCH COMPLIANCE SPECIALIST.SCRIPT EDITOR Work Phone: [facility] Work Phone: 11-06-1995 trivalent poliovirus vaccine, live, oral Roxann Jerrod RESEARCH COMPLIANCE SPECIALIST.SCRIPT EDITOR Work Phone: [facility] Work Phone: 04-07-1995 Chicken Pox (disease) Roxann Jerrod RESEARCH COMPLIANCE SPECIALIST.SCRIPT EDITOR Work Phone: [facility] Work Phone: 04-12-1992 diphtheria, tetanus toxoids and pertussis vaccine Roxann Jerrod RESEARCH COMPLIANCE SPECIALIST.[facility] Work Phone: [facility] Work Phone: 04-12-1992 haemophilus influenz ae type b vaccine, HbOC conjugate Roxann Jerrod RESEARCH COMPLIANCE SPECIALIST.[facility] Work Phone: [facility] Work Phone: 04-12-1992 trivalent poliovirus vaccine, live, oral Roxann Jerrod RESEARCH COMPLIANCE SPECIALIST.SCRIPT EDITOR Work Phone: [facility] Work Phone: 12-15-1991 measles, mumps, rubella, and varicella virus vaccine Roxann Jerrod RESEARCH COMPLIANCE SPECIALIST.[facility] Work Phone: [facility] Work Phone: 04-15-1991 diphtheria, tetanus toxoids and pertussis vaccine Roxann Jerrod RESEARCH COMPLIANCE SPECIALIST.[facility] Work Phone: [facility] Work Phone: 04-15-1991 haemophilus influenz ae type b vaccine, HbOC conjugate Roxann Jerrod RESEARCH COMPLIANCE SPECIALIST.[facility] Work Phone: [facility] Work Phone: 04-15-1991 trivalent poliovirus vaccine, live, oral Roxann Jerrod RESEARCH COMPLIANCE SPECIALIST.[facility] Work Phone: [facility] Work Phone: 01-28-1991 diphtheria, tetanus toxoids and pertussis vaccine Roxann Jerrod RESEARCH COMPLIANCE SPECIALIST.SCRIPT EDITOR Work Phone: [facility] Work Phone: 01-28-1991 haemophilus influenz ae type b vaccine, HbOC conjugate Roxann Jerrod RESEARCH COMPLIANCE SPECIALIST.SCRIPT EDITOR Work Phone: [facility] Work Phone: 01-28-1991 trivalent poliovirus vaccine, live, oral Roxann Jerrod RESEARCH COMPLIANCE SPECIALIST.SCRIPT EDITOR Work Phone: [facility] Work Phone: 1990 diphtheria, tetanus toxoids and pertussis vaccine Roxann Jerrod RESEARCH COMPLIANCE SPECIALIST.SCRIPT EDITOR Work Phone: [facility] Work Phone: 1990 hepatitis B vaccine, pediatric or pediatric/adolescent dosage Roxann Jerrod RESEARCH COMPLIANCE SPECIALIST.SCRIPT EDITOR Work Phone: [facility] Work Phone: 1990 trivalent poliovirus vaccine, live, oral Roxann Jerrod RESEARCH COMPLIANCE SPECIALIST.[facility] Work Phone: [facility] Work Phone: Payers Date Payer Category Payer Self-pay [id number] 2021 Unknown [id number] 2017 Unknown 1990 Unknown [id number] [id number] 1990 Unknown [id number] [id number]. [id number] 1990 Unknown [id number] [id number]. [id number] Medicaid MEDICAID [id number] Unknown ANTHEM [id number] Unknown [facility] *DO NOT USE* [id number] Unknown [facility] PACKAGE PLAN [id number] Unknown [id number] Social History Date Type Detail Facility Non-smoker Non-smoker Dale pascual 204 DO Work Phone: Start: 11-16-2021 End: 09-04-2022 Tobacco smoking status NHIS Unknown if ever smoked [facility] Start: 1990 Sex Assigned At Female [facility] Start: 03-13-2022 Tobacco smoking stat us NHIS Never smoked tobacco [facility] History of tobacco use Passive smoker [facility] Start: 03-13-2022 Tobacco use and exposure Smokeless tobacco non-user [facility] Start: 03-13-2022 End: 05-07-2022 Alcohol intake Current drinker of alcohol (finding) [facility] Start: 03-13-2022 Tobacco Comment dad inside [facility] Start: 02-25-2012 Alcohol Comment occasional, [facility] Start: 1990 Sex Assigned At Not on file [facility] Clinical Notes 10-02-2021 to 05-07-2022 Patient InstructionsConnie Gonzalez APRN.CNP - 05/07/2022 2:43 PM ESTPatient InstructionsRoxann Elder APRN.CNP - 03/13/2022 11:39 AM EST Note Date & Type Note Facility 05-07-2022 Note HNO ID: [id number] Author: Connie Gonzalez APRN.IGLESIA Service: ? Author [...] muscle relaxer at home. 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 Sciatica, right side - ICD9: 724.3, ICD10: M54.31 - XR LUMBAR GENERAL 3V AP/LAT/D3-A2-wunnwbr declined to have xray today - PREDNISONE [...] Discussed expected course of illness Connie Gonzalez APRN.SCRIPT EDITOR SCIATICA: Your exam shows you have sciatica, [...] or bowel control. documented in this encounter [facility] 05-07-2022 History of Present illness Narrative Subjective HPI Jocelyn Hernández is a 31 year old female who presents with right hip pain x 2 weeks. Pain started in right lower back and has now radiated to right hip. She rates her pain 3-4 today. She has been taking tylenol and ibuprofen and muscle relaxer at home. 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 mian [id number]_[employer] (TARIQ)_EUA This test was developed and its performance characteristics determined by [facility]'s [facility] [place]. This test has been authorized by FDA under an Emergency Use Authorization (EUA). This test has been validated in accordance with the FDA's Guidance Document Policy for Diagnostics Testing in Laboratories Certified to Perform High Complexity Testing under CLIA prior to Emergency use Authorization for Coronavirus Disease 2019 during the Public Health Emergency issued on June 05, 2019. Test performed by [facility], [facility] [place], [address] [place] [address]. INFLUENZA A PCR: Positive for Influenza A by RT-PCR INFLUENZA B PCR: Negative for Influenza B by RT-PCR [facility] Comment on above: Performed By: #### 9 [id number] #### [facility] CLIA [id number] [address] [place] [address] [place] 03-13-2022 Note HNO ID: [id number] Author: Roxann Elder APRN.CNP Service: ? Author Type: Nurse Practitioner Type: Progress Notes Filed: 03/13/2022 11:54 AM Note Text: Subjective The history is provided by the patient. No speech and language specialist was used. HPI Jocelyn Hernández is a [...] have confirmed and edited as necessary, the [facility] Review of Systems Constitutional: Positive for [...] in 12-24 hours with results, available on [employer] - COVID WITH FLUA+B, ROUTINE 2. URI [...] warranting prompt ER evaluation. Roxann Elder APRN.CNP [facility] 03-13-2022 Instructions Roxann Elder APRN.CNP - 03/13/2022 11:44 AM EST covid and influenza test ordered You will be notified in 12-24 hours, results available on [employer] Home isolation until results are back Rest, [...] inability to swallow. documented in this encounter [facility] 03-13-2022 History of Present illness Narrative Subjective The history is provided by the patient. No speech and language specialist was used. HPI Jocelyn Hernández is a [...] have confirmed and edited as necessary, the [facility] Review of Systems Constitutional: Positive for [...] in 12-24 hours with results, available on In[employer] - COVID WITH FLUA+B, ROUTINE 2. URI [...] warranting prompt ER evaluation. Roxann Elder APRN.IGLESIA documented in this encounter [facility] 12-19-2021 Chief complaint Narrative - Reported An interactive audio and video telecommunication system which permits real time communications between the patient (at the originating site) and provider (at the distant site) was utilized to provide this telehealth service.Verbal consent was requested and obtained from JOCELYN HERNÁNDEZ on this date, 12/19/2021 08:15 AM , for a telehealth visit.headachesneck pain -[place] [address] DO Work Phone: 10-02-2021 Chief complaint Narrative - Reported An interactive audio and video telecommunication system which permits real time communications between the patient (at the originating site) and provider (at the distant site) was utilized to provide this telehealth service.Verbal consent was requested and obtained from JOCELYN FRAGOSO on this date, 10/02/2021 08:00 AM , for a telehealth visit.Headaches VZ-Xszohjyei-Sxqmpyha 204 DO Work Phone: Evaluation note No assessment inform ation available [facility] Work Phone: Evaluation note Diagnosis Flu-like symptoms- Primary Other general symptoms URI with cough and congestion [facility] Diagnosis Sciatica, right side- Primary [facility] [place] [facility]* Diagnosis Onset Date Resolution Status Abnormal uterine bleeding ac dominick Dysmenorrhea acute Postcoital bleeding acute Encounter for routine gynecological examination noneactive Herniated nucleus pulposus, L5-S1 acute [facility] Work Phone: History of Present illness Narrative* Patient here today [...] This note was partially generated using the Visibiz voice recognition system. There may be typographical errors, spelling, or punctuation errors that were not corrected prior to committing the note tothe medical record. 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 non smoker. [...] hour diet recall reviewed and scanned into [facility]. * BREAKFAST: over night oats [...] * Patient report their overall health as: [facility] [email or web address] [address] DO Work Phone: History of Present illness [...] menses. 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 * Has tried the following medications [...] This note was partially generated using the [employer] voice recognition system. There may be typographical errors, spelling, or punctuation errors that were not corrected prior to committing the note tothe medical record. ZM-Nnzczdrkh-Mikkfh 170 DO Work Phone: Reason for referral (narrative)* Diagnostic Procedure Only (Urgent) - Authorized Specialty Diagnoses / Procedures Referred By Contac t Referred To Contact XR IMAGING Diagnoses Sciatica, right side Procedures XR LUMBAR GENERAL 3V AP/LAT/L5-S1 RADEX SPINE LUMBOSACRAL 2/3 VIEWS Conine Gonzalez APRN.SCRIPT EDITOR [address] [place] [address] Xr Imaging Referral ID Status Reason Start Date Expiration Date Visits Requested Visits Authorized [id number] Authorized Auto-Generat ed Referral 05/07/2022 06/06/[address] [facility] Summary Purpose Family History No Family [...] of hypothyroi dism: Mother, Aunt(V18.19, Z83.49) Status:Active Relationship Condition Age at Onset Recorded Date/T scott Not Specified Malignant neoplasm of breast Unknown Hypertension Unknown Malignant neoplasm of lung Unknown Unknown Family Member Name Dates Details Family history of hypothyroi dism: Mother, Aunt(V18.19, Z83.49) Status:Active Family history of malignant neoplasm of breast: Aunt(V16.3, Z80.3) Status:Active Family history of hypertensi on: Father(V17.49, Z82.49) Status:Active Advance Directives No Advanced Directives Records FoundNo Advanced Directives Records FoundNo Advanced Directives Records FoundNo Advanced Directives Records FoundNo Advanced Directives Records FoundNo Advanced Directives Records Found Chief Complaint Headaches Chief Complaint and Reason for Visit Chief Complaint SELF 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 Chief Complaint 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) DYSMENORRHEA lumbar spine Reason for Visit Abnormal uterine ble eding Dysmenorrhea Postcoital bleeding Encounter for routine gynecological examination Herniated nucleus pulposus, L5-S1 Health Concerns Infection Onset Date Last Indicated Resolved Time COVID-19 Rule-Out 03/13/2022 03/13/2022 Additional Source Comments INFORMATION SOURCE (unrecogn ized section and content) DATE CREATED AUTHOR 09/29/2017 [facility] DATE CREATED AUTHOR AUTHOR'S ORGANIZ ATION 11/23/2019 [facility] DATE CREATED AUTHOR AUTHOR'S ORGANIZ ATION 01/01/2022 [facility] DATE CREATED AUTHOR AUTHOR'S ORGANIZ ATION 01/01/2022 [employer] DATE CREATED AUTHOR AUTHOR'S ORGANIZ ATION 05/08/2022 [facility] DATE CREATED AUTHOR AUTHOR'S ORGANIZ ATION 02/22/2024 [facility] Goals (unrecognized section and content) Goals may be documented in a n alternate sectionGoals may be documented in an alternate section Source Comments (unrecognize d section and content) In the event this informatio n is protected by the Federal Confidentiality of Alcohol and Drug Abuse Patient Records regulations: The Federal rules restrict any use of the information to criminally investigate or prosecute any alcohol or drug abuse patient.[facility] the event this information is protected by the Federal Confidentiality of Alcohol and Drug Abuse Patient Records regulations: The Federal rules restrict any use of the information to criminally investigate or prosecute any alcohol or drug abuse patient.[facility] Reason for Visit (unrecogniz ed section and content) Reason Comments Cough Tired, sick x 2 days Reason Comments Right Hip Pain started as low back and leg pain x 2 weeks Care Teams (unrecognized sec tion and content) Photovoltaic Technician Relationship Specialty Start Date End Date Afsaneh Alvarez MD [address] [place] [address] PCP - General Internal Medicine 11/01/16 Photovoltaic Technician Relationship Specialty Start Date End Date Suman Herman MD [address] [facility], [place] [id number] PCP - General Family Medicine 05/07/22 Team Status: Active Member Role Status Dates Dr. James Calixto MD Family Provider Active Dr. Suman Herman MD Primary Care Provider Active Team Status: Inactive Member Role Status Dates Dr. Marcos Rizo MD Primary Care Provider, Referring Provider Active Ava Jennings CNM Attending Provider Active Team Status: Inactive Member Role Status Dates Dr. Marcos Rizo MD Referring Provider Active Dr. Julius Rodriguez DO Attending Provider Active Dr. Suman Herman MD Primary Care Provider Active Team Status: Inactive Member Role Status Dates Dr. Marcos Rizo MD Primary Care Provider Active Ava Jennings CNM Attending Provider Active Team Status: Inactive Member Role Status Dates Ava Jennings CNM Attending Provider, Referring Pro vider Active Dr. Suman Herman MD Primary Care Provider Active FOR RECORDS PERTAINING TO PATIENTS WHO ARE [...] BE BASED ON THE PRIMARY CLINICAL RECORDS. [email or web address] [facility]. provides no warranty or guarantee of the accuracy or completeness of information in this document.
--- OUTSIDE RECORDS SUMMARY | 2025-01-21 10:20 | XMS RPT_ITS | CCD ---
Author Organization [facility] Care Team Providers Care General Labor Name Role Phone Tavgeaee Kd M Unavailable [...] Care Afsaneh Klein MD Primary Care Provider [phone] Suman Herman MD Primary Care Provider AFSANEH ALVAREZ Primary Care Unavailable SUMAN HERMAN Primary Care Unavailable CONNIE GONZALEZ Referring Unavailable SUMAN HERMAN Primary Care Unavailable Dr. Marcos Rizo Primary Care Provider Dr. Marcos Rizo Referring Provider LEANNA Jennings Attending Provider Dr. Julius Rodriguez Attending Provider [phone] Dr. Suman Herman Primary Care Provider Nick Odonnell Referring Unavailable Nick Odonnell Attending Unavailable Suman Herman Primary Care Unavailable Allergies Allergy Classification Reported Allergen(s) Allergy Type Date of Onset Reaction(s) Facility (6 sources) bee pollen Allergy to substance (finding) IZ-Pmqmsueas-L [place] 204 DO Work Phone: (7 sources) nickel; Translations: [NICKEL] Drug Allergy 3 [facility] Repository (3 sources) nickel Drug Allergy 3 Rash [facility] Work Phone: (3 sources) Seasonal allergy; Translations: [SEASONAL ALLERGIES] Allergy to substance 6 Intolerance [facility] Work Phone: (2 sources) Seasonal Allergies: Uncoded; Translations: [Seasonal Allergies: Uncoded] Allergy to substance 3 Sneezing, itchy eyes [facility] (1 source) nickel Drug Allergy 3 [facility] Repository Medications Current Medications Medication Drug Class(es) [...] Ordered: 25-Dec-2020 DO Start : 25-Dec-2020 Active [id number] 200 actuat albuterol 0.09 mg/actuat metered dose [...] oral tablet (8 sources) Start: 11-08-2021 Biotin 47809 MCG Oral Tablet TAKE DIRECTED. 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, [address] Cholesterol in HDL [Mass/Vol] 82 mg/dL Normal [facility] Comment on above: Result Comment: The drugs N-Acetylcysteine and Metamizole may falsely depress this assay. Reference Range HDL <40 mg/dL Low HDL Cholesterol HDL >or= 60 mg/dL High HDL Cholesterol Performed By: #### L [id number], L500.4100 #### [facility] [address] [place], [address] Cholesterol in LDL [Mass/Vol] 112 mg/dL Normal 0-130 [facility] Comment on above: Performed By: #### L [id number], L500.4100 #### [facility] [address] [place], [address] Cholesterol in VLDL [Mass/Vol] 12 mg/dL Normal 5-40 [facility] Comment on above: Performed By: #### L [id number], L500.4100 #### [facility] [address] [place], [place], [address] Triglyceride [Mass/Vol] 61 mg/dL Normal [facility] Comment on above: Result Comment: The drugs N-Acetylcysteine and Metamizole may falsely depress this assay. Serum Triglycerides Reference Interval Normal <150 mg/dL Borderline high 150 - 199 mg/dL High 200 - 499 mg/dL Very High > or = 500 mg/dL Performed By: #### L [id number], L500.4100 #### [facility] [address] [place], [place], [address] Thyroid Stim Hormone (TSH)on 01-29-2024 TSH 1.860 uIU/mL Normal 0.358-3.740 [facility] Comment on above: Performed By: #### L [id number], L500.4100 #### [facility] [address] [place], [place], [address] Thin prep Papanicolaou smear with manual screeningOrdered By: Ava Jennings on 08-26-2022 Thin prep Papanicolaou smear with manual screening Neisseria or beta-hemolytic Streptococcus isolated. [facility] Gram stain for investigation of transfusion reactionOrdered By: Ava Jennings on 08-24-2022 Microscopic observation Gram stain Nom (Unsp spec) [facility] CNOVon 05-07-2022 CNOV Office Visit (UCWSTR ) JOCELYN HERNÁNDEZ ([id number]) 1990 F Date Time Provider Department 05/07/22 2:30 PM [facility] During your visit today, we recorded the following information about you: Temperature Pulse Respiration Blood pressure 98.2 degrees 76/minute 16/minute 102/60 Weight 95.7 kg Connie Gonzalez APRN.FUR LINER 05/07/2022 2:49 PM Signed Subjective HPI Jocelyn Hernández is a 31 year old female who presents with right hip pain x 2 weeks. Pain started in right lower back and has now radiated to right hip. She rates her pain 3-4 today. She has been taking tylenol and ibuprofen and muscle relaxer at home. 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 Normal [facility] CNOVon 03-13-2022 CNOV Office Visit (UCWSTR ) JOCELYN HERNÁNDEZ ([id number]) 1990 F Date Time Provider Department 03/13/22 11:45 AM ROXANN ELDER [facility] During your visit today, we recorded the following information about you: Temperature Pulse Respiration Blood pressure 99.2 degrees 84/minute 22/minute 100/78 Weight 93.3 kg Roxann Elder APRN.FUR LINER 03/13/2022 11:54 AM Signed Subjective The history is provided by the patient. No assembly instructions writer was used. HPI Jocelyn Hernández is a [...] have confirmed and edited as necessary, the [facility] Review of Systems Constitutional: Positive for [...] in 12-24 hours with results, available on [employer] - COVID WITH FLUA+B, ROUTINE 2. URI [...] congestion [J06.9] (more content not included)... Normal [facility] Office Visit ([facility])on 12-19-2021 Follow-up visit Diagnoses/Problems Assessed Cervicalgia (723.1) [...] it improves congestion and headaches. 4. 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 5. 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 non smoker. [...] hour diet recall reviewed and scanned into [employer]. BREAKFAST: over night oats or protein shake- [...] not use any apps for meditation Support System:[employer] (more content not included)... Normal [facility] GLUCOSE,FASTINGon 12-07-2021 Glucose [Mass/Vol] 81 mg/dL Normal 74 - 99 [facility] Comment on above: Result Comment: INCR EASED RISK FOR DIABETES 100-125 mg/dL DIAGNOSTIC OF DIABETES >=126 mg/dL Diagnosis of diabetes mellitus requires confirmation of an abnormal result by repeat testing. [place] [employer], Diabetes Care; 33(Supp 1), Apr 2009. Performed By: #### G LUCF #### [address] [address] Glucose, Fastingon 2 Glucose post fast [Mass/Vol] 81 mg/dL 74 - 99 [facility] Work Phone: Comment on above: INCREASED RISK FOR D IABETES 100-125 mg/dL DIAGNOSTIC OF DIABETES >=126 mg/dL Diagnosis of diabetes mellitus requires confirmation of an abnormal result by repeat testing. [place] [employer], Diabetes Care; 33(Supp 1), Apr 2009. LIPID PANEL (CORONARY RISK 2 )on 12-07-2021 Cholesterol [Mass/Vol] 204 mg/dL High 0 - 199 [facility] Comment on above: Result Comment: . AGE [...] dosing. Performed By: #### L IPID #### [address] [address] Cholesterol in HDL [Mass/Vol] 68.0 mg/dL Normal [facility] Comment on above: Result Comment: . AGE VERY LOW LOW NORMAL HIGH 0-19 Y < 35 < 40 40-45 ---- 20-24 Y ---- < 40 >45 ---- >24 Y ---- < 40 40-60 >60 . Performed By: #### L IPID #### [address] [address] Cholesterol in LDL [Mass/Vol] 117 mg/dL High 0 - 99 [facility] Comment on above: Result Comment: . NEAR BORD AGE DESIRABLE OPTIMAL HIGH HIGH VERY HIGH 0-19 Y 0 - 109 --- 110-129 >/= 130 ---- 20-24 Y 0 - 119 --- 120-159 >/= 160 ---- >24 Y 0 - 99 100-129 130-159 160-189 >/=190 . Performed By: #### L IPID #### [address] [address] Cholesterol in VLDL [Mass/Vol] 19 mg/dL Normal 0 - 40 [facility] Comment on above: Performed By: #### L IPID #### [address] [address] Cholesterol.total/Ch olesterol in HDL [Mass ratio] 3.0 {ratio} Normal [facility] Comment on above: Result Comment: REF VALUES DESIRABLE < 3.4 HIGH RISK > 5.0 Performed By: #### L IPID #### [address] [address] Triglyceride [Mass/Vol] 93 mg/dL Normal 0 - 149 [facility] Comment on above: Result Comment: . AGE [...] dosing. Performed By: #### L IPID #### [address] [address] Lipid Panelon 12-07-2021 Cholesterol [Mass/Vol] 204 mg/dL above high threshold 0 - 199 [employer] [facility] Work Phone: Comment on above: . AGE [...] dosing. Cholesterol in HDL [Mass/Vol] 68.0 mg/dL [employer] [facility] Work Phone: Comment on above: . AGE VERY LOW LOW N ORMAL HIGH 0-19 Y < 35 < 40 40-45 ---- 20- 24 Y ---- < 40 >45 ---- >24 Y ---- < 40 40-60 >60. Cholesterol in LDL [Mass/Vol] 117 mg/dL above high threshold 0 - 99 [employer] [facility] Work Phone: Comment on above: . NEAR BORD AGE EDEL RABLE OPTIMAL HIGH HIGH VERY HIGH 0-19 Y 0 - 109 --- 110-129 >/= 130 ---- 20-24 Y 0 - 119 --- 120-159 >/= 160 ---- >24 Y 0 - 99 100-129 130-159 160-189 >/=190. Cholesterol.total/Ch olesterol in HDL [Mass ratio] 3.0 {ratio} [employer] [facility] Work Phone: Comment on above: REF VALUESDESIRABLE < 3.4HIGH RISK > 5.0 Triglyceride [Mass/Vol] 93 mg/dL 0 - 149 [employer] [facility] Work Phone: Comment on above: . AGE [...] mg/dL 0 - 40 [facility] Work Phone: Office Visit (Primary Care T [...] Problems History of Corneal lasik History of [place] tooth extraction Family History Mother Family history [...] DAILY, MIX 50/50 WITH CERAVE LOTION Biotin 40964 MCG Oral TabletTAKE DIRECTED. CoQ-10 50 MG [...] NonMedication Nickel Pollen Vitals Vital Signs Recorded: [id number] 03:30PM Heart Rate: 83 Systolic: 112 Diastolic: [...] No murmur, No gallop. Integumentary: Warm, Dry, [place], Intact. Psychiatric: Cooperative, Appropriate mood AND affect, Normal judgment. 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 Interested in acupuncture. Consider aimovig for prevention if MOH is not improved. Botox may be an option. Patient Discussion/Summary Advised ergonomic evaluation at workstation. Avoid using Tylenol or Ibuprofen for more than 3 days per week. Can stop the medication all together to Evaluation for possible medication overuse headache. [facility] referral for non-pharmacologic treatment alternatives for migraine. Rizatriptan for rescue. Please call our office at [phone] to leave a message with my statistical secretary if you have any questions or concerns. Please contact me on the [employer] application if you cannot reach me through the phone. Return to clinic in 3 months or in person or earlier as needed. Diagnoses/Problems Assessed Chronic migraine without aura without status migrainosus, not intractable (346.70) (G43.709) Cervicalgia (723.1) (M54.2) Orders Cervicalgia [facility] Medicine Referral Evaluation and Treatment Evaluate AND [...] This note was partially generated using the [employer] voice recognition system. There may be typographical [...] 11-17-2019 SARS-COV-2 NOT DETECTED Normal NOT DETECTED [facility] Comment on above: Order Comment: [facility] Agent Suspected: SARS-COV-2 This test was performed [...] or clinically deteriorating. Performed By: #### L [id number] #### [facility] (DEFAULT) [address] [place] [address] Vital Signs Date Time Vital Sign Value Performing Clinician Facility 09-04-2022 09:22-0400 Body height 167.[address] Marcos Rizo Work Phone: [facility] 09-04-2022 09:22-0400 Body mass index (BMI) [Ratio] 32.4 kg/m2 Dr. Marcos Rizo Work Phone: [facility] 09-04-2022 09:22-0400 Body weight 91.[address] Marcos Rizo Work Phone: [facility] 08-23-2022 15:52-0400 Body mass index (BMI) [Ratio] 32.4 kg/m2 Dr. Marcos Rizo Work Phone: [facility] 08-23-2022 15:52-0400 Body weight 91.[address] Marcos Rizo Work Phone: [facility] 08-23-2022 15:52-0400 Diastolic blood pressure 74 mm[Hg] Dr. Marcos Rizo Work Phone: [facility] 08-23-2022 15:52-0400 Systolic blood pressure 114 mm[Hg] Dr. Marcos Rizo Work Phone: [facility] 05-07-2022 14:22-0500 Body temperature 98.2 [degF] Connie Praisler-Wood AUTO PARKER.FUR LINER Work Phone: [facility] 05-07-2022 14:22-0500 Body weight 95.71 kg Connie Praisler-Wood AUTO PARKER.FUR LINER Work Phone: [facility] 05-07-2022 14:22-0500 Diastolic blood pressure 60 mm[Hg] Connie Praisler-Wood AUTO PARKER.FUR LINER Work Phone: [facility] 05-07-2022 14:22-0500 Heart rate 76 /min Connie Praisler-Wood AUTO PARKER.FUR LINER Work Phone: [facility] 05-07-2022 14:22-0500 Respiratory rate 16 /min Connie Praisler-Wood AUTO PARKER.FUR LINER Work Phone: [facility] 05-07-2022 14:22-0500 SaO2% (BldA) [Mass fraction] 98 % Connie Praisler-Wood AUTO PARKER.FUR LINER Work Phone: [facility] 05-07-2022 14:22-0500 Systolic blood pressure 102 mm[Hg] Connie Praisler-Wood AUTO PARKER.FUR LINER Work Phone: [facility] 03-13-2022 11:30-0500 Body temperature 99.19 [degF] Roxann Jerrod AUTO PARKER.FUR LINER Work Phone: [facility] 03-13-2022 11:30-0500 Body weight 93.26 kg Roxann Jerrod AUTO PARKER.FUR LINER Work Phone: [facility] 03-13-2022 11:30-0500 Diastolic blood pressure 78 mm[Hg] Roxann Jerrod AUTO PARKER.FUR LINER Work Phone: [facility] 03-13-2022 11:30-0500 Heart rate 84 /min Roxann Jerrod AUTO PARKER.FUR LINER Work Phone: [facility] 03-13-2022 11:30-0500 Respiratory rate 22 /min Roxann Jerrod AUTO PARKER.FUR LINER Work Phone: [facility] 03-13-2022 11:30-0500 SaO2% (BldA) [Mass fraction] 98 % Roxann Jerrod AUTO PARKER.FUR LINER Work Phone: [facility] 03-13-2022 11:30-0500 Systolic blood pressure 100 mm[Hg] Roxann Jerrod AUTO PARKER.FUR LINER Work Phone: [facility] 01-02-2022 15:35-0400 Body height 167.64 cm Suman Herman Work Phone: OE-Liugewofv-Tciaq a 170 DO Work Phone: 01-02-2022 15:35-0400 Body mass index (BMI) [Ratio] 32.93 kg/m2 Suman Gonzalezess Work Phone: RW-Yipspoecw-Mywex a 170 DO Work Phone: 01-02-2022 15:35-0400 Body surface area Derived from formula 2.02 m2 Suman Mckinney Furness Work Phone: IZ-Isfxklhmd-Ovgto a 170 DO Work Phone: 01-02-2022 15:35-0400 Body temperature 98.3 [degF] Suman Mckinney Furness Work Phone: MJ-Bjnjdeqoe-Ccnkg a 170 DO Work Phone: 01-02-2022 15:35-0400 Body weight 92.53 kg Suman Mckinney Furness Work Phone: VU-Zffgbeijd-Hwhed a 170 DO Work Phone: 01-02-2022 15:35-0400 Diastolic blood pressure 68 mm[Hg] Suman Gonzalezess Work Phone: YT-Rtuycekgu-Ccfpg a 170 DO Work Phone: 01-02-2022 15:35-0400 Heart rate 67 /min Suman Gonzalezess Work Phone: UX-Wnxdrxdox-Rftxw a 170 DO Work Phone: 01-02-2022 15:35-0400 Systolic blood pressure 103 mm[Hg] Suman Gonzalezess Work Phone: BP-Jijviileb-Rgnix a 170 DO Work Phone: 12-04-2021 15:30-0400 Body height 167.64 cm Suman Mckinney Furness Work Phone: ML-Snqfuvlmx-Sppmk ban 204 DO Work Phone: 12-04-2021 15:30-0400 Body mass index (BMI) [Ratio] 32.84 kg/m2 Suman Mckinney Furness Work Phone: VC-Cfvzxxyty-Gjjfh ban 204 DO Work Phone: 12-04-2021 15:30-0400 Body surface area Derived from formula 2.01 m2 Suman Mckinney Furness Work Phone: AZ-Hjqicffus-Lqcpd ban 204 DO Work Phone: 12-04-2021 15:30-0400 Body weight 92.28 kg Suman Gonzalezess Work Phone: MC-Nlsxexlxa-Uqpqi ban 204 DO Work Phone: 12-04-2021 15:30-0400 Diastolic blood pressure 66 mm[Hg] Suman Mckinney Furness Work Phone: NH-Iymjxsruw-Yhyaa ban 204 DO Work Phone: 12-04-2021 15:30-0400 Heart rate 83 /min Suman T Furness Work Phone: GD-Ewnxgkmew-Mgorf ban 204 DO Work Phone: 12-04-2021 15:30-0400 SaO2% (BldA) [Mass fraction] 98 % Suman Mckinney Furness Work Phone: TD-Cwmpaerim-Rmcdq ban 204 DO Work Phone: 12-04-2021 15:30-0400 Systolic blood pressure 112 mm[Hg] Suman Mckinney Furness Work Phone: FS-Eieyozndf-Ataqh ban 204 DO Work Phone: Encounters Encounter Date Encounter Type Care Provider Facility Start: 02-19-2024 Encounter for genera l adult medical examination without abnormal findings Nick Odonnell [facility] Start: 01-29-2024 End: 01-29-2024 ambulatory Nick Odonnell Facility:[facility] Start: 09-04-2022 End: 09-04-[address] Marcos Rizo Work Phone: [facility] Start: 08-30-2022 End: 08-30-[address] Marcos Rizo Work Phone: [facility] Work Phone: Start: 08-30-2022 End: 08-30-[address] Marcos Rizo Work Phone: [facility] Ultrasound Start: 08-23-2022 End: 08-23-[address] Marcos Rizo Work Phone: [facility]-Laboratory, Specimen Start: 08-23-2022 End: 08-23-[address] Marcos Rizo Work Phone: [facility] Start: 05-07-2022 AUDIT Suman ambriz Work Phone: [facility] Work Phone: Start: 05-07-2022 End: 05-07-2022 ambulatory SUMAN HERMAN Facility:[facility] Start: 05-07-2022 End: 05-07-2022 Patient encounter procedure Connie Gonzalez APRN.FUR LINER Work Phone: [facility] Comment on above: Sciatica, right side (Primary Dx) Start: 03-13-2022 End: 03-13-2022 ambulatory AFSANEH GANTA Facility:[facility] Start: 03-13-2022 End: 03-13-2022 Patient encounter procedure Roxann Elder APRN.FUR LINER Work Phone: [facility] Comment on above: Flu-like symptoms (P rimary Dx); URI with cough and congestion Start: 03-04-2022 AUDIT Suman ambriz Work Phone: [facility] 2300 Work Phone: Start: 01-02-2022 Office outpatient vi sit 15 minutes Suman Herman Work Phone: [facility] 170 DO Work Phone: Start: 12-19-2021 Office outpatient ne w 60 minutes Suman Herman Work Phone: [facility] [address] DO Work Phone: Start: 12-19-[address] Wilma Arguello Facility:[id number] Start: 12-11-2021 Chart Update Suman ambriz Work Phone: [facility] Work Phone: Start: 12-06-2021 AUDIT Suman ambriz Work Phone: JG-Rnvzkdpaf-Ygifvdsp 204 DO Work Phone: Start: 12-04-2021 ambulatory Suman bruno [facility] Facility:[id number] Start: 11-28-2021 End: 11-28-2021 ambulatory [facility] Work Phone: Start: 11-28-2021 End: 11-28-2021 Discharged Recurring [facility]-Physical Therapy Start: 11-02-2021 AUDIT Unknown Unknown [facility] [facility] Work Phone: Start: 10-02-2021 Phys/qhp telephone evaluation 21-30 min Unknown Unknown LQ-Vgncxhqif-Tscicmsx 204 DO Work Phone: Start: 10-02-2021 ambulatory UNKNOWN UNKNOWN Facilit y:[id number] Start: 04-29-2017 End: 04-30-2017 Ambulatory Kd Baxter Deyaelsa Facility:[facility] Internal Medicine Procedures Date Procedure Procedure [...] Detail Author Start: 04-07-[address] [facility] Start: 03-13-2022 End: 03-27-2022 Influenza virus A and B RNA and SARS-CoV-2 (COVID-19) N gene panel - Respiratory specimen by MCKAYLA with probe detection COVID WITH FLUA+B, ROUTINE Microbiology Routine Flu-like symptoms URI with cough and congestion Expected: 03/13/2022, Expires: 03/27/2022 [facility] Work Phone: Comment on above: Expected: 03/13/2022 , Expires: 03/27/2022 Start: 01-02-2022 FUVGENERAL, Provider : Christopher Najera, Status: Pen, Time: 3:30 PM FUVGENERAL, Provider: Christopher Najera, Status: Pen, Time: 3:30 PM [facility] Work Phone: Start: 12-19-2021 VIRNPVHOME, Provider : Wilma Arguello, Status: Pen, Time: 8:15 AM VIRNPVHOME, Provider: Wilma Arguello, Status: Pen, Time: 8:15 AM GT-Pmznwmchs-Xkhdnnrb 204 DO Work Phone: Start: 12-06-2021 Influenza vaccination INFLUENZA (#1) [facility] Start: 12-04-2021 NPV, Provider: Suman Herman, Status: Pen, Time: 3:20 PM NPV, Provider: Suman Herman, Status: Pen, Time: 3:20 PM UQ-Telpuuaqr-Fkxcqqrt 204 DO Work Phone: Start: 11-12-2021 VIRNPVHOME, Provider : Wilma Arguello, Status: Pen, Time: 11:15 AM VIRNPVHOME, Provider: Wilma Arguello, Status: Pen, Time: 11:15 AM AW-Pryulhhqn-Llcgrqh 5th Work Phone: Start: 04-07-2021 DEPRESSION ASSESSMENT DEPRESSION ASS ESSMENT [facility] Start: 2020 HPV TESTING HPV TESTING [facility] Start: 06-27-2020 COVID-19 VACCINE (3 - Booster for Pfizer series) COVID-19 VACCINE (3 - Booster for Pfizer series) [facility] Start: 10-06-2019 PAP TESTING PAP TESTING [facility] Start: 10-14-2017 Urine microalbumin profile DTAP,TDAP,TD (7 - Td or Tdap) [facility] Start: 2008 HEPATITIS C SCREENING HEPATITIS C [facility] Start: 2008 HIV SCREENING HIV SCREENING [facility] MR Lumbar spine [facility] End: 06-06-2023 Radex spine lumbosacral 2/3 views XR LUMBAR GENERAL 3V AP/LAT/L5-S1 Radiology STAT Sciatica, right side 1 Occurrences starting 05/07/2022 until 06/06/2023 [facility] Work Phone: Comment on above: 1 Occurrences starti ng 05/07/2022 until 06/06/2023 Immunizations Immunization Date Immunization Notes Care Provider Annalee gregg 01-30-2016 influenza, injectabl e, quadrivalent, contains preservative Roxann Jerrod AUTO PARKER.[facility] Work Phone: [facility] Work Phone: 01-04-2015 influenza, injectabl e, quadrivalent, contains preservative Roxann Jerrod AUTO PARKER.[facility] Work Phone: [facility] 10-15-2007 Meningococcal, MCV4, unspecified conjugate formulation(groups A, C, Y and W-135) Roxann Jerrod AUTO PARKER.FUR LINER Work Phone: [facility] Work Phone: 10-15-2007 tetanus toxoid, redu jada diphtheria toxoid, and acellular pertussis vaccine, adsorbed Roxann Jerrod AUTO PARKER.FUR LINER Work Phone: [facility] Work Phone: 10-18-2002 measles, mumps, rubella, and varicella virus vaccine Roxann Jerrod AUTO PARKER.FUR LINER Work Phone: [facility] Work Phone: 12-08-1998 hepatitis B vaccine, pediatric or pediatric/adolescent dosage Roxann Jerrod AUTO PARKER.FUR LINER Work Phone: [facility] Work Phone: 02-07-1998 hepatitis B vaccine, pediatric or pediatric/adolescent dosage Roxann Jerrod [employer] Work Phone: [facility] Work Phone: 11-06-1995 diphtheria, tetanus toxoids and acellular pertussis vaccine Roxann Jerrod [employer] Work Phone: [facility] Work Phone: 11-06-1995 trivalent poliovirus vaccine, live, oral Roxann Jerrod [employer] P[employer] Work Phone: [facility] Work Phone: 04-07-1995 Chicken Pox (disease) Roxann Jerrod [employer] Work Phone: [facility] Work Phone: 04-12-1992 diphtheria, tetanus toxoids and pertussis vaccine Roxann Jerrod AUT[employer] P[employer].[facility] Work Phone: [facility] Work Phone: 04-12-1992 haemophilus influenz ae type b vaccine, HbOC conjugate Roxann Jerrod [employer].[facility] Work Phone: [facility] Work Phone: 04-12-1992 trivalent poliovirus vaccine, live, oral Roxann Jerrod [employer] Work Phone: [facility] Work Phone: 12-15-1991 measles, mumps, rubella, and varicella virus vaccine Roxann Jerrod [employer].[facility] Work Phone: [facility] Work Phone: 04-15-1991 diphtheria, tetanus toxoids and pertussis vaccine Roxann Jerrod [employer].[facility] Work Phone: [facility] Work Phone: 04-15-1991 haemophilus influenz ae type b vaccine, HbOC conjugate Roxann Jerrod AUT[employer] P[employer]ER.[facility] Work Phone: [facility] Work Phone: 04-15-1991 trivalent poliovirus vaccine, live, oral Roxann Jerrod [employer] P[employer].[facility] Work Phone: [facility] Work Phone: 01-28-1991 diphtheria, tetanus toxoids and pertussis vaccine Roxann Jerrod [employer] Work Phone: [facility] Work Phone: 01-28-1991 haemophilus influenz ae type b vaccine, HbOC conjugate Roxann Jerrod AUT[employer] P[employer]ER.[employer] Work Phone: [facility] Work Phone: 01-28-1991 trivalent poliovirus vaccine, live, oral Roxann Jerrod AUT[employer] P[employer]ER.[employer] Work Phone: [facility] Work Phone: 1990 diphtheria, tetanus toxoids and pertussis vaccine Roxann Jerrod [employer] P[employer]ER.[employer] Work Phone: [facility] Work Phone: 1990 hepatitis B vaccine, pediatric or pediatric/adolescent dosage Roxann Jerrod [employer] P[employer]ER.[employer] Work Phone: [facility] Work Phone: 1990 trivalent poliovirus vaccine, live, oral Roxann Jerrod AUT[employer] P[employer]ER.[facility] Work Phone: [facility] Work Phone: Payers Date Payer Category Payer Self-pay [id number] 2021 Unknown [id number] 2017 Unknown 1990 Unknown [id number] [id number] 1990 Unknown [id number] [id number]. [id number] 1990 Unknown [id number] [id number]. [id number] Medicaid MEDICAID [id number] Unknown ANTHEM [id number] Unknown [facility] *DO NOT USE* [id number] Unknown [facility] PACKAGE PLAN [id number] Unknown [id number] Social History Date Type Detail Facility Non-smoker Non-smoker Dale pascual 204 DO Work Phone: Start: 11-16-2021 End: 09-04-2022 Tobacco smoking status NHIS Unknown if ever smoked [facility] Start: 1990 Sex Assigned At Female [facility] Start: 03-13-2022 Tobacco smoking stat us NHIS Never smoked tobacco [facility] History of tobacco use Passive smoker [facility] Start: 03-13-2022 Tobacco use and exposure Smokeless tobacco non-user [facility] Start: 03-13-2022 End: 05-07-2022 Alcohol intake Current drinker of alcohol (finding) [facility] Start: 03-13-2022 Tobacco Comment dad inside [facility] Start: 02-25-2012 Alcohol Comment occasional, [facility] Start: 1990 Sex Assigned At Not on file C [facility] Clinical Notes 10-02-2021 to 05-07-2022 Patient InstructionsConnie Gonzalez APRN.CNP - 05/07/2022 2:43 PM ESTPatient InstructionsRoxann Elder APRN.CNP - 03/13/2022 11:39 AM EST Note Date & Type Note Facility 05-07-2022 Note HNO ID: [id number] Author: Connie Gonzalez APRN.IGLESIA Service: ? Author [...] muscle relaxer at home. 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 Sciatica, right side - ICD9: 724.3, ICD10: M54.31 - XR LUMBAR GENERAL 3V AP/LAT/C1-E4-dotzlzn declined to have xray today - PREDNISONE [...] Discussed expected course of illness Connie Gonzalez APRN.[employer]ER SCIATICA: Your exam shows you have sciatica, [...] or bowel control. documented in this encounter [facility] 05-07-2022 History of Present illness Narrative Subjective HPI Jocelyn Hernández is a 31 year old female who presents with right hip pain x 2 weeks. Pain started in right lower back and has now radiated to right hip. She rates her pain 3-4 today. She has been taking tylenol and ibuprofen and muscle relaxer at home. She is a [employer] and had a patient recently that required [...] ICD10: M54.31 - XR LUMBAR GENERAL 3V AP/LAT/Q6-C4-zudpjir declined to have xray today - PREDNISONE [...] Connie Gonzalez APRN.IGLESIA documented in this encounter [facility] 03-13-2022 Influenza virus A and B RNA and SARS-CoV-2 (COVID-19) N gene panel MCKAYLA+probe (Resp) COVID 19 RESULT: SARS-CoV-2 (Agent of COVID-19) Not Detected by RT-PCR or equivalent method. mian [employer]PUG[employer] (TARIQ)_EUA This test was developed and its performance characteristics determined by [facility]'s [facility] [place]. This test has been authorized by FDA under an Emergency Use Authorization (EUA). This test has been validated in accordance with the FDA's Guidance Document Policy for Diagnostics Testing in Laboratories Certified to Perform High Complexity Testing under CLIA prior to Emergency use Authorization for Coronavirus Disease 2019 during the Public Health Emergency issued on June 05, 2019. Test performed by [facility], [facility] [place], [address] [place] [address]. INFLUENZA A PCR: Positive for Influenza A by RT-PCR INFLUENZA B PCR: Negative for Influenza B by RT-PCR [facility] Comment on above: Performed By: #### 9 [id number] #### [facility] CLIA [id number] [address] [place] [address] [place] 03-13-2022 Note HNO ID: [id number] Author: Roxann Elder APRN.CNP Service: ? Author Type: Nurse Practitioner Type: Progress Notes Filed: 03/13/2022 11:54 AM Note Text: Subjective The history is provided by the patient. No assembly instructions writer was used. HPI Jocelyn Hernández is a [...] have confirmed and edited as necessary, the [facility] Review of Systems Constitutional: Positive for [...] in 12-24 hours with results, available on Startupeandot - COVID WITH FLUA+B, ROUTINE 2. URI [...] warranting prompt ER evaluation. Roxann Elder APRN.CNP [facility] 03-13-2022 Instructions Roxann Elder APRN.CNP - 03/13/2022 11:44 AM EST covid and influenza test ordered You will be notified in 12-24 hours, results available on [employer] Home isolation until results are back Rest, [...] inability to swallow. documented in this encounter [facility] 03-13-2022 History of Present illness Narrative Subjective The history is provided by the patient. No assembly instructions writer was used. HPI Jocelyn Hernández is a [...] have confirmed and edited as necessary, the [facility] Review of Systems Constitutional: Positive for [...] in 12-24 hours with results, available on 365lookshart - COVID WITH FLUA+B, ROUTINE 2. URI [...] Roxann Elder APRN.IGLESIA documented in this encounter [facility] 12-19-2021 Chief complaint Narrative - Reported An interactive audio and video telecommunication system which permits real time communications between the patient (at the originating site) and provider (at the distant site) was utilized to provide this telehealth service.Verbal consent was requested and obtained from JOCELYN HERNÁNDEZ on this date, 12/19/2021 08:15 AM , for a telehealth visit.headachesneck pain -[place] [address] DO Work Phone: 10-02-2021 Chief complaint Narrative - Reported An interactive audio and video telecommunication system which permits real time communications between the patient (at the originating site) and provider (at the distant site) was utilized to provide this telehealth service.Verbal consent was requested and obtained from JOCELYN FRAGOSO on this date, 10/02/2021 08:00 AM , for a telehealth visit.Headaches [id number] 204 DO Work Phone: Evaluation note No assessment inform ation available [facility] Work Phone: Evaluation note Diagnosis Flu-like symptoms- Primary Other general symptoms URI with cough and congestion [facility] Diagnosis Sciatica, right side- Primary [facility] Diagnosis Onset Date Resolution Status Abnormal uterine bleeding ac dominick Dysmenorrhea acute Postcoital bleeding acute Encounter for routine gynecological examination noneactive Herniated nucleus pulposus, L5-S1 acute [facility] Work Phone: History of Present illness Narrative* [...] This note was partially generated using the [employer] voice recognition system. There may be typographical errors, spelling, or punctuation errors that were not corrected prior to committing the note tothe medical record. 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 non smoker. [...] hour diet recall reviewed and scanned into [facility]. * BREAKFAST: over night oats [...] Patient report their overall health as: [facility] [address] DO Work Phone: History of Present illness [...] menses. 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 * Has tried the following medications [...] This note was partially generated using the [employer] voice recognition system. There may be typographical errors, spelling, or punctuation errors that were not corrected prior to committing the note tothe medical record. [id number] 170 DO Work Phone: Reason for referral (narrative)* Diagnostic Procedure Only (Urgent) - Authorized Specialty Diagnoses / Procedures Referred By Contac t Referred To Contact XR IMAGING Diagnoses Sciatica, right side Procedures XR LUMBAR GENERAL 3V AP/LAT/L5-S1 RADEX SPINE LUMBOSACRAL 2/3 VIEWS Conine Gonzalez APRN.[employer] LINER [address] [place] [address] Xr Imaging Referral ID Status Reason Start Date Expiration Date Visits Requested Visits Authorized [id number] Authorized Auto-Generat ed Referral 05/07/2022 06/06/2023 1 1 [facility] Summary Purpose Family History No Family History [...] 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 Chief Complaint 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) DYSMENORRHEA lumbar spine Reason for Visit Abnormal uterine ble eding Dysmenorrhea Postcoital bleeding Encounter for routine gynecological examination Herniated nucleus pulposus, L5-S1 Health Concerns Infection Onset Date Last Indicated Resolved Time COVID-19 Rule-Out 03/13/2022 03/13/2022 Additional Source Comments INFORMATION SOURCE (unrecogn ized section and content) DATE CREATED AUTHOR 09/29/2017 [facility] DATE CREATED AUTHOR AUTHOR'S ORGANIZ ATION 11/23/2019 [facility] DATE CREATED AUTHOR AUTHOR'S ORGANIZ ATION 01/01/2022 [facility] DATE CREATED AUTHOR AUTHOR'S ORGANIZ ATION 01/01/2022 [employer] DATE CREATED AUTHOR AUTHOR'S ORGANIZ ATION 05/08/2022 [facility] DATE CREATED AUTHOR AUTHOR'S ORGANIZ ATION 02/22/2024 [facility] Goals (unrecognized section and content) Goals may [...] or prosecute any alcohol or drug abuse patient.[facility] the event this information is protected by the Federal Confidentiality of Alcohol and Drug Abuse Patient Records regulations: The Federal rules restrict any use of the information to criminally investigate or prosecute any alcohol or drug abuse patient.[facility] Reason for Visit (unrecogniz ed section and content) Reason Comments Cough Tired, sick x 2 days Reason Comments Right Hip Pain started as low back and leg pain x 2 weeks Care Teams (unrecognized sec tion and content) General Labor Relationship Specialty Start Date End Date Afsaneh Alvarez MD [address] [place] [address] PCP - General Internal Medicine 11/01/16 General Labor Relationship Specialty Start Date End Date Suman Herman MD [address] [facility], [place] [id number] PCP - General Family Medicine 05/07/22 Team [...] BE BASED ON THE PRIMARY CLINICAL RECORDS. [employer] [facility]. provides no warranty or guarantee of the accuracy or completeness of information in this document.
[2025-01-21 12:34] LABS: Hematocrit 40.4 % (37-47); Hemoglobin 13.7 g/dL (12.0-15.0); Immature Granulocytes Count 0.010 X10^3/uL (0.0-0.0); Mean Corp Hgb Conc 33.9 g/dL (32-36); Mean Corpuscular Volume 90.6 fL (81-99); Mean Platelet Vol. 10.4 fl (6.2-12.0); NRBC Flagged by Analyzer 0 % (0-5); Platelet Count 276 K/mm3 (150-450); RBC Distribution Width CV 12.4 % (11.6-14.6); RBC Distribution Width SD 41.0 fl (35.1-43.9); Red Blood Count 4.46 M/mm3 (4.2-5.4); White Blood Count 6.0 K/mm3 (4.4-11.0)
[2025-01-21 13:21] LABS: Anion Gap 11 (5-15); BUN 13 mg/dL (4-19); BUN/Creat Ratio 19.8 RATIO (10-20); Calcium,Total 9.2 mg/dL (7.6-11.0); Carbon Dioxide 22.6 mmol/L (21.0-32.0); Chloride 104 mmol/L (98-108); Cholesterol 182 mg/dL (<=200); Glucose 83 mg/dL (70-99); Low Density Lipoprotein Calc. 100 mg/dL; Potassium 4.1 mmol/L (3.3-5.1); Triglycerides 66 mg/dL; Very Low Density Lipoprotein 13 mg/dL (5-40); cholesterol:hdl ratio screen 2.60
== END | disposition home or self-care (01) ==
LOC: MFPLAB 09:58
PROVIDERS: PCP Family Medicine; Visit Provider Family Medicine
DX: Z00.00 Encounter for general adult medical examination without abnormal findings (principal); N92.6 Irregular menstruation, unspecified
CPT/HCPCS: 36415; 80048; 80061; 85025